=== PATIENT | male | born 1965 | race Caucasian/White ===

== ENCOUNTER 2023-11-04 12:39 | Inpatient (IN) ==
--- NOTE | 2023-11-04 12:56 | Emergency Department Note ---
Impression & Plan Shortness of breath, Bronchitis, Hypomagnesemia, Sinus tachycardia, Alcohol use disorder ED Provider Note NAME: DAVID YAN AGE: 57 SEX: M : 1965 ARRIVES VIA: Ambulance INFORMANT: Patient ED PROVIDER(S): Mahad Byrne MD CHIEF COMPLAINT: Shortness of breath, referred. PLAN: Disposition: Admit MEDICAL DECISION MAKING: The patient is a pleasant 57-year-old gentleman with a past medical history of asthma, hypertension, hyperlipidemia who presents to the emergency department via EMS, referred by urgent care for evaluation of worsening shortness of breath in the setting of patient's history of asthma reports he has been using his inhalers regularly for the past several days without improvement and he did experience of some worsening over the past 24 hours. He reports some intermittent productive sputum which is yellowish. He reports feeling chills today but denies objective fevers. He denies nausea, vomiting, diarrhea or urinary symptoms. He does admit to drinking alcohol daily and reports 5 drinks a day which he last had last night. Patient reports it has been sometime since he has gone more than a day or 2 without drinking but he feels he would not withdrawal and he does not feel like craving to drink per se. The patient reports a history of sleep apnea for which she uses CPAP at night though admits he often awakes with the mask having fallen off and so does not rarely use it. Patient denies history of smoking. On evaluation the patient is uncomfortable, mildly dyspneic but no acute distress, afebrile heart in the 110s and blood pressure 170s/90s and vital signs otherwise stable. O2 saturation is 95% on room air when awake but when sleeping would go down to 86% on room air. Lungs with a scant intermittent wheeze and lungs are otherwise clear. He appears clinically dry. EKG without overt acute ischemia. CXR negative for acute cardiopulmonary process per my personal preliminary review/interpretation. WBC and platelets within normal limits. H/H 13.9/39.6 without prior for comparison. Chemistry without metabolic acidosis. Magnesium is 1.3 with IV repletion initiated. Totally remains normal and AST and ALT are mildly elevated at 88 and 77, respectively in setting of history of patient's regular alcohol use and hyperlipidemia. High-sensitivity troponin is 4.2, within normal limits in setting of constant symptoms since yesterday evening where he reported worsening. Lipase is normal. TSH within normal limits. CTA of the chest was performed and was negative for PE or focal pneumonia. Evidence of bronchitis is described. Upon re-evaluation the patient did report feeling some improvement after initial IV fluid hydration. However he still remained tachycardic and somewhat dyspneic though less tremulous. We did discuss his low magnesium and symptoms and concern for possible underlying alcohol dependence. He does agree with plan for admission for further management. Blood cultures and lactate ordered and are pending. Patient was ordered for ceftriaxone and doxycycline given his feverishness and symptoms of bronchitis. AWSS protocol ordered. 1 mg of Ativan also administered for possible component of alcohol withdrawal. Case was discussed with Felicia Mann PAC with Johnathan Jacobo hospitalist, who will evaluate the patient for admission. Further management per admitting team. Triage Nursing notes reviewed and agree them. Prior/external medical records reviewed Vital Signs: reviewed Differential diagnosis: Reactive airway disease, pneumonia, pneumothorax, COPD, CHF, infections, cardiac ischemia, pulmonary embolism, musculoskeletal, gastrointestinal, as well as other pathologies. ER treatment provided: See below. Diagnostics interpreted by me: ECG: Sinus tachycardia, 105 bpm, no ectopy, nonspecific T wave abnormality, no overt ST elevation or depression, QTc 444, QRS 78. Cardiac Monitoring: An order for continuous cardiac monitoring was placed and demonstrated sinus tachycardia, 105 bpm, no ectopy. Laboratory studies: See below Imaging studies: See below Consultation(s): Case was discussed with Felicia Mann PAC with Johnathan Jacobo hospitaljaleel, who will evaluate the patient for admission. HPI: The patient is a pleasant 57-year-old gentleman with a past medical history of asthma, hypertension, hyperlipidemia who presents to the emergency department via EMS, referred by urgent care for evaluation of worsening shortness of breath in the setting of patient's history of asthma reports he has been using his inhalers regularly for the past several days without improvement and he did experience of some worsening over the past 24 hours. He reports some intermittent productive sputum which is yellowish. He reports feeling chills today but denies objective fevers. He denies nausea, vomiting, diarrhea or urinary symptoms. He does admit to drinking alcohol daily and reports 5 drinks a day which he last had last night. Patient reports it has been sometime since he has gone more than a day or 2 without drinking but he feels he would not withdrawal and he does not feel like craving to drink per se. The patient reports a history of sleep apnea for which she uses CPAP at night though admits he often awakes with the mask having fallen off and so does not rarely use it. Patient denies history of smoking. ROS: See above HPI for pertinent positives & negatives. A total of 10 systems reviewed and were otherwise negative. VITALS:See Below PHYSICAL EXAMINATION: GENERAL: Awake, alert, mildly dyspneic-appearing, in no distress HENT: Normocephalic, atraumatic. Oropharynx with dry mucous membranes and otherwise unremarkable. EYES: Normal conjunctiva. Sclera non-icteric. NECK: Supple. No nuchal rigidity. FROM. No JVD. RESPIRATORY: Scant intermittent wheeze and otherwise clear to auscultation. CARDIAC: Tachycardic rate, normal rhythm. Extremities warm and well perfused. Pulses equal. ABDOMEN: Soft, non-distended. No tenderness to palpation. No rebound or guarding. No masses. MUSCULOSKELETAL: Chest examination reveals no tenderness. The back is symmetrical on inspection without obvious abnormality. There is no CVA tenderness to palpation. No joint edema. LOWER EXTREMITIES: Calves are equal size bilaterally and non-tender. No edema. No discoloration. NEURO: Normal sensorium. No sensory or motor deficits noted. SKIN: No rash or jaundice noted. Mahad Byrne MD Past Med/Surg History Problem List Alcohol use disorder (Acute) Sinus tachycardia (Acute) Hypomagnesemia (Acute) Bronchitis (Acute) Shortness of breath (Acute) Surgical History (Updated 11/04/23 @ 16:59 by EDUARD Lorenzo) No pertinent past surgical history Family History (Updated 11/04/23 @ 16:59 by EDUARD Lorenzo) Other Dyslipidemia Hypertension Social History Smoking Status: Never smoker Second Hand Exposure: No; Do You Dip or Chew Tobacco: No; Tobacco Cessation Education Requested by Patient: No Hx Alcohol Use: Yes Alcohol type: hard liquor Hx Substance Use: No Preferred Language: Maldivian Communication Ability: Effective Store Sales Manager Required: No Beliefs That Will Affect Care: None Current Living Situation: Spouse Feels Safe at Home: Yes Safety Concerns: Feels Safe At This Time Assistive Devices: None Allergies Allergies Allergy/AdvReac Type Severity Reaction Status Date / Time carisoprodol [From Soma] Allergy Hives Verified 11/04/23 14:31 nabumetone [From Relafen] Allergy Hives Verified 11/04/23 14:31 Home Meds Home Medications Medication Instructions Recorded Confirmed Otc Prostate Supp 1 tab PO DAILY 11/04/23 11/04/23 albuterol sulfate 90 mcg/actuation 2 puff inhalation Q4 PRN Shortness 11/04/23 11/04/23 aerosol inhaler Of Breath Or Wheezing amlodipine 5 mg tablet 5 mg PO QAM 11/04/23 11/04/23 fluticasone furoate 200 1 inh inhalation QAM 11/04/23 11/04/23 mcg-vilanterol 25 mcg/dose inhalation powder (Breo Ellipta) lisinopril 40 mg tablet 40 mg PO QAM 11/04/23 11/04/23 montelukast 10 mg tablet 10 mg PO QAM 11/04/23 11/04/23 multivitamin 1 tab PO DAILY 11/04/23 11/04/23 simvastatin 20 mg tablet 20 mg PO QAM 11/04/23 11/04/23 tiotropium bromide 2.5 2 puff inhalation QAM 11/04/23 11/04/23 mcg/actuation mist for inhalation (Spiriva Respimat) trazodone 150 mg tablet 150 mg PO HS 11/04/23 11/04/23 valacyclovir 1 gram tablet 1,000 mg PO DAILY 11/04/23 11/04/23 Results & Data (ED) Vital Signs Vital Signs - 24 hr 11/04/23 12:50 11/04/23 13:01 11/04/23 13:22 Temperature 36.9 C Temperature Source Oral Pulse Rate 116 H 106 H Pulse Rate from SpO2 Sensor 110 H Respiratory Rate 20 16 Respiratory Depth Shallow Blood Pressure 172/93 H Blood Pressure Mean 119 Pulse Oximetry 95 95 96 Oxygen Delivery Method Room Air Room Air Sepsis Recent Fever Within 48 Hours No Sepsis New/Unexplained Change in Mental Status No Sepsis Action Taken by Nursing No Action Required 11/04/23 13:26 11/04/23 13:30 11/04/23 13:30 Temperature Temperature Source Pulse Rate 110 H 97 H Pulse Rate from SpO2 Sensor 91 H Respiratory Rate 6 L Respiratory Depth Blood Pressure 146/86 H Blood Pressure Mean 98 Pulse Oximetry 95 Oxygen Delivery Method Sepsis Recent Fever Within 48 Hours Sepsis New/Unexplained Change in Mental Status Sepsis Action Taken by Nursing 11/04/23 14:00 11/04/23 14:00 11/04/23 14:29 Temperature 37.1 C Temperature Source Oral Pulse Rate 110 H Pulse Rate from SpO2 Sensor 111 H Respiratory Rate 26 H Respiratory Depth Blood Pressure 156/105 H Blood Pressure Mean 131 Pulse Oximetry 96 Oxygen Delivery Method Sepsis Recent Fever Within 48 Hours Sepsis New/Unexplained Change in Mental Status Sepsis Action Taken by Nursing Laboratory Data Attestation: I reviewed the patient's lab results. 11/05/23 06:19 11/05/23 06:19 Lab Results 11/04/23 11/04/23 11/04/23 Range/Units 13:04 13:05 16:43 WBC 8.52 (4.8-10.8) K/ul RBC 3.83 L (4.70-6.10) M/uL Hgb 13.9 L (14.0-18.0) g/dl Hct 39.6 L (42.0-52.0) % MCV 103.4 H (80.0-100.0) fL MCH 36.3 H (25.0-34.0) pg MCHC 35.1 (32.0-36.0) g/dL RDW Std Deviation 46.4 H (36.4-46.3) fL RDW Coeff of Mark 12.1 (11.5-14.5) % Plt Count 239 (130-400) K/uL MPV 10.6 (9.4-12.4) fL Immature Gran % (Auto) 0.7 % Neut % (Auto) 75.7 % Lymph % (Auto) 12.2 % Terrell % (Auto) 10.2 % Eos % (Auto) 0.6 % Baso % (Auto) 0.6 % Neut # (Auto) 6.45 (1.40-6.50) K/uL Lymph # (Auto) 1.04 L (1.20-3.40) K/uL Terrell # (Auto) 0.87 H (0.11-0.59) K/uL Eos # (Auto) 0.05 (0.00-0.50) K/uL Baso # (Auto) 0.05 (0.00-0.20) K/uL Immature Gran # (Auto) 0.06 (0.01-0.20) K/uL Sodium 137 (136-145) mmol/L Potassium 3.6 (3.5-5.1) mmol/L Chloride 101 (98-107) mmol/L Carbon Dioxide 21 (21-32) mmol/L Anion Gap 15 H (3-11) BUN 12 (6-23) mg/dl Creatinine 0.73 (0.6-1.4) mg/dl Est Cr Clr Drug Dosing 130.3 ml/min Est GFR ( Amer) 119.3 ml/min Est GFR (Non-Af Amer) 103.0 ml/min BUN/Creatinine Ratio 16.4 (10-20) Glucose 89 (70-99(Fasting)) mg/dl Lactate 2.1 H* (0.4-2.0) mmol/L Calcium 8.9 (8.6-10.3) mg/dl Phosphorus 2.7 (2.5-4.9) mg/dl Magnesium 1.3 L (1.7-2.4) mg/dl Total Bilirubin 0.6 (0.2-1.0) mg/dl AST 88 H (13-39) U/L ALT 77 H (7-52) U/L Alkaline Phosphatase 66 (34-104) U/L Troponin I High Sens 4.2 (0-20) pg/ml Total Protein 7.1 (6.0-8.3) gm/dl Albumin 4.0 (3.4-5.0) gm/dl Globulin 3.1 (2.5-4.0) gm/dl Albumin/Globulin Ratio 1.3 (0.9-2) Lipase 65 (11-82) U/L Vitamin B12 (180-914) pg/ml Procalcitonin 0.08 (0-0.5) ng/ml TSH 1.522 (0.300-4.500) uIu/ml Ethyl Alcohol mg/dL < 10.0 (<10.0) mg/dl 11/04/23 Range/Units 16:44 WBC (4.8-10.8) K/ul RBC (4.70-6.10) M/uL Hgb (14.0-18.0) g/dl Hct (42.0-52.0) % MCV (80.0-100.0) fL MCH (25.0-34.0) pg MCHC (32.0-36.0) g/dL RDW Std Deviation (36.4-46.3) fL RDW Coeff of Mark (11.5-14.5) % Plt Count (130-400) K/uL MPV (9.4-12.4) fL Immature Gran % (Auto) % Neut % (Auto) % Lymph % (Auto) % Terrell % (Auto) % Eos % (Auto) % Baso % (Auto) % Neut # (Auto) (1.40-6.50) K/uL Lymph # (Auto) (1.20-3.40) K/uL Terrell # (Auto) (0.11-0.59) K/uL Eos # (Auto) (0.00-0.50) K/uL Baso # (Auto) (0.00-0.20) K/uL Immature Gran # (Auto) (0.01-0.20) K/uL Sodium (136-145) mmol/L Potassium (3.5-5.1) mmol/L Chloride (98-107) mmol/L Carbon Dioxide (21-32) mmol/L Anion Gap (3-11) BUN (6-23) mg/dl Creatinine (0.6-1.4) mg/dl Est Cr Clr Drug Dosing ml/min Est GFR ( Amer) ml/min Est GFR (Non-Af Amer) ml/min BUN/Creatinine Ratio (10-20) Glucose (70-99(Fasting)) mg/dl Lactate (0.4-2.0) mmol/L Calcium (8.6-10.3) mg/dl Phosphorus (2.5-4.9) mg/dl Magnesium (1.7-2.4) mg/dl Total Bilirubin (0.2-1.0) mg/dl AST (13-39) U/L ALT (7-52) U/L Alkaline Phosphatase (34-104) U/L Troponin I High Sens (0-20) pg/ml Total Protein (6.0-8.3) gm/dl Albumin (3.4-5.0) gm/dl Globulin (2.5-4.0) gm/dl Albumin/Globulin Ratio (0.9-2) Lipase (11-82) U/L Vitamin B12 579 (180-914) pg/ml Procalcitonin (0-0.5) ng/ml TSH (0.300-4.500) uIu/ml Ethyl Alcohol mg/dL (<10.0) mg/dl Administered Medications Amlodipine Besylate (Amlodipine Besylate 5 Mg Tab) 5 mg PO QAM KACIE Stop: 12/05/23 08:59 Last Admin: 11/05/23 08:09 Dose: 5 mg Documented By: TRACEY Enoxaparin Sodium (Enoxaparin Inj 40 Mg/0.4 Ml Syr) 40 mg SQ Q24H KACIE Stop: 12/04/23 16:59 Last Admin: 11/04/23 17:12 Dose: 40 mg Documented By: RENATO Fluticasone/Vilanterol (Fluticasone/Vilanterol 200/25mcg 14 Puffs/Inhaler) 1 puffs INH QAM KACIE Stop: 12/05/23 08:59 Last Admin: 11/05/23 08:12 Dose: 1 puffs Documented By: TRACEY Gabapentin (Gabapentin 600 Mg Tab) 600 mg PO Q8H KACIE Stop: 11/06/23 05:31 Last Admin: 11/05/23 13:50 Dose: 600 mg Documented By: EP Doxycycline Hyclate 100 mg/ (Dextrose) 100 mls @ 50 mls/hr IV Q12H KACIE Stop: 11/12/23 06:29 Last Infusion: 11/05/23 08:24 Dose: Infused Documented By: Admin: 11/05/23 05:43 Dose: 50 mls/hr Documented By: MARINO Ceftriaxone Sodium (Rocephin) 2,000 mg in 50 mls @ 100 mls/hr IV Q24H KACIE Stop: 11/12/23 14:59 Last Infusion: 11/05/23 15:30 Dose: Infused Documented By: Admin: 11/05/23 14:50 Dose: 100 mls/hr Documented By: TRACEY Lisinopril (Lisinopril 40 Mg Tab) 40 mg PO QAM KACIE Stop: 12/05/23 08:59 Last Admin: 11/05/23 08:10 Dose: 40 mg Documented By: TRACEY Loratadine ([facility]adine 10 Mg Tab) [facility] [place]: 12/05/23 08:59 Last Admin: 11/05/23 08:12 Dose: 10 mg Documented By: TRACEY Montelukast Sodium (Montelukast Sodium 10 Mg Tablet) 10 mg PO [facility] Stop: 12/05/23 08:59 Last Admin: 11/05/23 08:10 Dose: 10 mg Documented By: TRACEY Simvastatin (Simvastatin 20 Mg Tab) 20 mg PO [facility] Stop: 12/05/23 08:59 Last Admin: 11/05/23 08:10 Dose: 20 mg Documented By: TRACEY Trazodone HCl (Trazodone Hcl 50 Mg Tab) 150 mg PO [facility] Stop: 12/04/23 20:59 Last Admin: 11/04/23 21:37 Dose: 150 mg Documented By: RENATO Umeclidinium [place] (Umeclidinium [place] 62.5mcg/Blister 7 Puffs/Inhaler) 1 puffs INH [facility] Stop: 12/05/23 08:59 Last Admin: 11/05/23 08:12 Dose: 1 puffs Documented By: TRACEY Discontinued Medications Gabapentin (Gabapentin 600 Mg Tab) 1,200 mg PO NOW ONE Stop: 11/04/23 17:29 Last Admin: 11/04/23 18:40 Dose: 1,200 mg Documented By: RENATO Gabapentin (Gabapentin 600 Mg Tab) 600 mg PO Q6H [facility] Stop: 11/05/23 05:31 Last Admin: 11/05/23 05:43 Dose: 600 mg Documented By: Admin: 11/04/23 23:22 Dose: 600 mg Documented By: MARINO Guaifenesin (Guaifenesin 600 Mg Tabcr) 1,200 mg PO NOW STA Stop: 11/04/23 15:52 Last Admin: 11/04/23 17:11 Dose: 1,200 mg Documented By: RENATO Sodium Chloride (Nss) 1,000 mls @ 999 mls/hr IV .Q1H1M ONE Stop: 11/04/23 13:43 Last Infusion: 11/04/23 13:52 Dose: Infused Documented By: Admin: 11/04/23 13:21 Dose: 999 mls/hr Documented By: ISAEL Magnesium Sulfate/Dextrose (Magnesium Sulfate / D5w) 1 gm in 100 mls @ 100 mls/hr IV Q1H KACIE Stop: 11/04/23 16:02 Last Infusion: 11/04/23 18:36 Dose: Infused Documented By: Admin: 11/04/23 15:41 Dose: 100 mls/hr Documented By: Infusion: 11/04/23 15:26 Dose: Infused Documented By: Admin: 11/04/23 14:26 Dose: 100 mls/hr Documented By: SOURAV Acetaminophen (Ofirmev) 1,000 mg in 100 mls @ 400 mls/hr IV NOW STA Stop: 11/04/23 14:16 Last Infusion: 11/04/23 14:25 Dose: Infused Documented By: Admin: 11/04/23 14:09 Dose: 400 mls/hr Documented By: SOURAV Multivitamins 10 ml/ Thiamine HCl 100 mg/ Folic Acid 1 mg/Sodium Chloride 1,011.2 mls @ 500 mls/hr IV .Q2H2M ONE Stop: 11/04/23 16:06 Last Infusion: 11/04/23 18:36 Dose: Infused Documented By: Admin: 11/04/23 16:18 Dose: 500 mls/hr Documented By: RENATO Thiamine HCl 200 mg/ Sodium (Chloride) 52 mls @ 210 mls/hr IV NOW STA Stop: 11/04/23 14:19 Last Infusion: 11/04/23 18:37 Dose: Infused Documented By: Admin: 11/04/23 16:58 Dose: 210 mls/hr Documented By: RENATO Ceftriaxone Sodium (Rocephin) 2,000 mg in 50 mls @ 100 mls/hr IV NOW STA Stop: 11/04/23 16:23 Last Infusion: 11/04/23 18:37 Dose: Infused Documented By: Admin: 11/04/23 17:17 Dose: 100 mls/hr Documented By: RENATO Doxycycline Hyclate 100 mg/ (Dextrose) 100 mls @ 50 mls/hr IV NOW STA Stop: 11/04/23 17:53 Last Admin: 11/04/23 17:56 Dose: 50 mls/hr Documented By: RENATO Thiamine HCl 100 mg/ Syringe 10 mls @ 2 mls/min IV QAM KACIE Stop: 12/05/23 08:59 Last Admin: 11/05/23 08:12 Dose: 2 mls/min Documented By: EP Folic Acid 1 mg/ Syringe 10 mls @ 5 mls/min IV QAM KACIE Stop: 12/05/23 08:59 Last Admin: 11/05/23 08:12 Dose: 5 mls/min Documented By: EP Ioversol (Optiray 320 125ml) 119 ml IV ONCE ONE Stop: 11/04/23 14:51 Last Admin: 11/04/23 14:53 Dose: 119 ml Documented By: CHRISTOPHER Loratadine (Loratadine 10 Mg Tab) 10 mg PO NOW ONE Stop: 11/04/23 19:27 Last Admin: 11/04/23 19:38 Dose: 10 mg Documented By: RENATO Lorazepam (Lorazepam 1 Mg/1 Ml Syr Ed Inj Use) 1 mg IV ONE STA Stop: 11/04/23 15:46 Last Admin: 11/04/23 16:24 Dose: 1 mg Documented By: RENATO Imaging Data Radiologist's Impression: Chest X-Ray 11/04/23 12:43 XR chest 1V portable CLINICAL HISTORY: dizziness COMPARISON STUDY: No previous studies for comparison. FINDINGS: There is moderate elevation of the right hemidiaphragm. Lungs are clear. There is no pneumothorax or pleural effusion. Cardiac size is normal. Mediastinal contours are normal. There is no evidence for pulmonary edema. IMPRESSION: 1. No acute cardiopulmonary findings. 2. Elevation of the right hemidiaphragm. ACT 112: Negative or not required by law. Electronically signed by: Derek Gr M.D. 11/04/2023 1:47 PM Chest CTA 11/04/23 14:02 CHEST CTA for PULMONARY ARTERIES CT DOSE: 890.56 mGy.cm HISTORY: Shortness of breath, tachycardia, r/o PE TECHNIQUE: Multiaxial CT images of the chest were performed following the intravenous administration of contrast to evaluate the pulmonary arteries. 3D/Maximal intensity projection images were also obtained. Sagittal and coronal reformations were also reviewed. A dose lowering technique was utilized adhering to the principles of ALARA. COMPARISON STUDY: None. FINDINGS: Normal caliber thoracic aorta with no evidence for a dissection. Mild to moderate coronary artery calcifications are noted. The heart is borderline enlarged. No pleural or pericardial effusions. No filling defects within the pulmonary arteries to suggest a pulmonary embolus. Limited views the upper abdomen demonstrate hepatic steatosis and a normal spleen. The visualized adrenal glands are unremarkable. There is a 17 mm enhancing lesion within the left hepatic lobe on image 30. This is incompletely characterized on this study. Clustered hypodense lesions within the upper pole the left kidney are also incompletely characterized but favor septated cysts. These measure up to 3.7 cm. The thyroid gland enhances normally. Normal caliber esophagus. No mediastinal or hilar lymphadenopathy. No acute fractures within the chest. Old, healed sternal fracture. Old, healed right lower rib fractures. There is mild central bronchial wall thickening. Otherwise, the central airways are patent. No pneumothorax. No focal lung consolidations to suggest a pneumonia. No evidence for pulmonary edema. IMPRESSION: 1. No evidence for a pulmonary embolus. 2. Mild central bronchial wall thickening. This could be chronic or represent a mild reactive airways disease. 3. No focal lung consolidations to suggest pneumonia. 4. A 17 mm enhancing lesion within the left hepatic lobe. This is incompletely characterized on this study but statistically represents a benign lesion in the absence of a known malignancy. 5. Clustered hypodense lesions within the upper pole of the left kidney favor septated cysts. ACT 112: Negative or not required by law. Electronically signed by: Maximiliano Mitchell M.D. 11/04/2023 3:36 PM Discharge Plan Visit Data Chief Complaint: Cardiac Assessment ED Provider: Mahad Byrne Discharge Problem: Shortness of breath, Bronchitis, Hypomagnesemia, Sinus tachycardia, Alcohol use disorder Patient Disposition: Admitted As Inpatient Discharge Instructions Interventions: ED Discharge Assessment Last Done: 11/04/23 21:40
[2023-11-04] MEDS: SODIUM CHLORIDE 0.9% 1,000 ML IV ONE (13:21)
[2023-11-04 13:34] LABS: Basophils # (auto) 0.05 K/uL (0.00-0.20); Basophils % (auto) 0.6 %; Eosinophils # (auto) 0.05 K/uL (0.00-0.50); Eosinophils % (auto) 0.6 %; Hematocrit (blood only) 39.6 % (42.0-52.0); Hemoglobin 13.9 g/dl (14.0-18.0); Immature Granulocytes # (auto) 0.06 K/uL (0.01-0.20); Immature Granulocytes % (auto) 0.7 %; Lymphocytes # (auto) 1.04 K/uL (1.20-3.40); Lymphocytes % (auto) 12.2 %; Mean Corpuscular Hemoglobin 36.3 pg (25.0-34.0); Mean Corpuscular Hgb Conc 35.1 g/dL (32.0-36.0); Mean Corpuscular Volume 103.4 fL (80.0-100.0); Mean Platelet Volume 10.6 fL (9.4-12.4); Monocytes # (auto) 0.87 K/uL (0.11-0.59); Monocytes % (auto) 10.2 %; Neutrophils # (auto) 6.45 K/uL (1.40-6.50); Neutrophils % (auto) 75.7 %; Platelet Count 239 K/uL (130-400); RDW Coefficient of Variation 12.1 % (11.5-14.5); RDW Standard Deviation 46.4 fL (36.4-46.3); Red Blood Count 3.83 M/uL (4.70-6.10); White Blood Count 8.52 K/ul (4.8-10.8)
--- NOTE | 2023-11-04 13:49 | XRay Report ---
XR chest 1V portable CLINICAL HISTORY: dizziness COMPARISON STUDY: No previous studies for comparison. FINDINGS: There is moderate elevation of the right hemidiaphragm. Lungs are clear. There is no pneumo thorax or pleural effusion. Cardiac size is normal. Mediastinal contours are normal. There is no evid ence for pulmonary edema. IMPRESSION: 1. No acute cardiopulmonary findings. 2. Elevation of the right hemidiaphragm. ACT 112: Negative or not required by law. Electronically signed by: Derek Gr M.D. 11/04/2023 1:47 PM
[2023-11-04 13:50] LABS: Albumin Globulin Ratio 1.3 (0.9-2); BUN Creatinine Ratio 16.4 (10-20); Bilirubin,Total 0.6 mg/dl (0.2-1.0); Calcium 8.9 mg/dl (8.6-10.3); Creatinine Clr Calc Pharmacy 130.3 ml/min; Est GFR (African American) 119.3 ml/min; Globulin 3.1 gm/dl (2.5-4.0); Magnesium 1.3 mg/dl (1.7-2.4); Phosphorus 2.7 mg/dl (2.5-4.9); Potassium 3.6 mmol/L (3.5-5.1); Total Protein 7.1 gm/dl (6.0-8.3)
[2023-11-04 13:55] LABS: Troponin I High Sensitivity 4.2 pg/ml (0-20)
[2023-11-04 14:05] LABS: Thyroid Stimulating Hormone 1.522 uIu/ml (0.300-4.500)
[2023-11-04] MEDS: ACETAMINOPHEN 1,000 MG/100 ML VIAL IV STA (14:09)
[2023-11-04] MEDS: MAGNESIUM SULFATE / D5W 1 GM/100 ML BAG IV SCH (14:26)
[2023-11-04] MEDS: OPTIRAY 320 125ml IV ONE (14:53)
--- NOTE | 2023-11-04 15:38 | CT Scan Report ---
CHEST CTA for PULMONARY ARTERIES CT DOSE: 890.56 mGy.cm HISTORY: Shortness of breath, tachycardia, r/o PE TECHNIQUE: Multiaxial CT images of the chest were performed following the intravenous administration of contrast to evaluate the pulmonary arteries. 3D/Maximal intensity projection images were also obta ined. Sagittal and coronal reformations were also reviewed. A dose lowering technique was utilized a dhering to the principles of ALARA. COMPARISON STUDY: None. FINDINGS: Normal caliber thoracic aorta with no evidence for a dissection. Mild to moderate coronary artery calcifications are noted. The heart is borderline enlarged. No pleural or pericardial effusion s. No filling defects within the pulmonary arteries to suggest a pulmonary embolus. Limited views the upper abdomen demonstrate hepatic steatosis and a normal spleen. The visualized adrenal glands are u nremarkable. There is a 17 mm enhancing lesion within the left hepatic lobe on image 30. This is inco mpletely characterized on this study. Clustered hypodense lesions within the upper pole the left kidn ey are also incompletely characterized but favor septated cysts. These measure up to 3.7 cm. The thyr oid gland enhances normally. Normal caliber esophagus. No mediastinal or hilar lymphadenopathy. No ac [place] fractures within the chest. Old, healed sternal fracture. Old, healed right lower rib fractures. There is mild central bronchial wall thickening. Otherwise, the central airways are patent. No pneumo thorax. No focal lung consolidations to suggest a pneumonia. No evidence for pulmonary edema. IMPRESSION: 1. No evidence for a pulmonary embolus. 2. Mild central bronchial wall thickening. This could be chronic or represent a mild reactive airways disease. 3. No focal lung consolidations to suggest pneumonia. 4. A 17 mm enhancing lesion within the left hepatic lobe. This is incompletely characterized on this study but statistically represents a benign lesion in the absence of a known malignancy. 5. Clustered hypodense lesions within the upper pole of the left kidney favor septated cysts. ACT 112: Negative or not required by law. Electronically signed by: Maximiliano Mitchell M.D. 11/04/2023 3:36 PM
[2023-11-04] MEDS: MULTI-VITAMIN INFUSION 10 ML, THIAMINE HCL 100 MG, FOLIC ACID 1 MG in SODIUM CHLORIDE 0... IV ONE (16:18)
[2023-11-04] MEDS: LORazepam 1 MG/1 ML SYR ED Inj Use IV STA (16:24)
[2023-11-04] MEDS ORDERED: ACETAMINOPHEN 325 MG TAB PO PRN (16:47)
[2023-11-04] MEDS ORDERED: MAGNESIUM HYDROXIDE SUSP 30 ML UDC PO PRN (16:47)
[2023-11-04] MEDS ORDERED: ALUMINUM/MAGNESIUM SUSP 30 ML UDC PO PRN (16:47)
[2023-11-04] MEDS ORDERED: POLYETHYLENE (MIRALAX) 17 GM PACK PO PRN (16:47)
[2023-11-04] MEDS ORDERED: ONDANSETRON INJ 2 MG/ML 2 ML VIAL IV PRN (16:47)
[2023-11-04] MEDS: THIAMINE HCL 200 MG in SODIUM CHLORIDE 0.9% 50 ML IV STA (16:58)
--- NOTE | 2023-11-04 17:02 | History & Physical Report ---
Date of Service November 04, 2023 Assessment & Plan (1) Sinus tachycardia: (2) Alcohol use disorder: (3) Hypomagnesemia: (4) Shortness of breath: (5) Bronchitis: Plan Mr. 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 He reports this is never happened to him before and he proceeded to urgent care where they found that he was tachycardic in the 130s and sent him to the ED for further evaluation. He reports that he has been taking his inhalers over the past few days without improvement and notes that he has had a increase in sputum production with discoloration. He denies overt fever and chills. He does admit to daily alcohol use including 5 drinks of vodka per day that he drinks between 5 PM and 10:30 PM he states that he has missed a few days of drinking before but it has been more than a few years. He denies any seizure or withdrawal symptoms but does report that he "shakes" at times. Additional past medical history includes asthma, HTN, HLD, alcohol use. In the ED no leukocytosis, hypomagnesemia 1.3, mild transaminitis, procalcitonin negative, otherwise electrolytes unremarkable. Chest x-ray negative for acute cardiopulmonary disease chest CT a negative for PE but suggestive of bronchial wall thickening with a mild 17 mm liver lesion noted. EKG without ischemia. CXR negative for acute cardiopulmonary process. Chest CTA no evidence for a pulmonary embolus. Mild central bronchial wall th ickening. This could be chronic or represent a mild reactive airways disease. No focal lung consolidations to suggest pneumonia. A 17 mm enhancing lesion within the left hepatic lobe. This is incompletely characterized on this study but statistically represents a benign lesion in the absence of a known malignancy. Clustered hypodense lesions within the upper pole of the left kidney favor septated cysts. Patient will be admitted for further evaluation and management for possible sepsis of pulmonary source given elevated lactate, tachycardia, intermittent fevers. Will continue treatment for possible community-acquired pneumonia with ceftriaxone plus doxycycline, trend lactate down, flutter valve and incentive spirometry with nebulizers as needed, sputum culture. Trend LFTs and placed on AWSS scale including gabapentin and as needed Ativan for withdrawal symptoms, treat hypertension and HLD with outpatient medications. ECG without ischemic changes; will obtain echocardiogram given history of hypertension and persistent tachycardia however suspect that his tachycardia is related to viral infection and possible alcohol withdrawal. Possible sepsis: Shortness of breath: Tachycardia: Acute No leukocytosis; however, has elevated lactate 2.1, tachycardia on admission and intermittent fevers Procalcitonin negative Blood cultures pending Biofire pending ECG negative for ischemic changes ECHO ordered given HTN and tachycardia CXR negative for acute cardiopulmonary disease Chest CTA negative for PE; suggestive of bronchial wall thickening Started on ceftriaxone plus Doxy in ED; will continue given asthma history; adjust based on culture results incentive spirometry + Flutter valve for pulmonary toileting Mucinex PRN Sputum culture ordered Transaminitis: Alcohol use disorder: Acute AST 80, ALT 77 17 mm enhancing lesion within the left hepatic lobe incidentally found. Clustered hypodense lesions within the left kidney suggestive of cysts Liver US ordered Banana bag given 1 mg Ativan given in ED for tremulous presentation AWSS scale ordered Thiamine plus folate IV Encouraged cessation of drinking Hypomagnesemia: Acute Serum Mg+ 1.3; 2 g administered in ED; will trend in a.m. Asthma: Chronic Takes Spiriva, Breo Ellipta and PRN Albuterol;continue Takes Singulair;continue duo nebs ordered PRN Does not sound wheezy on examination HTN: Chronic Takes amlodipine plus lisinopril; continue HLD: Chronic Takes Simvastatin; continue Disposition: PCP: Dr. Clay CODE STATUS: Full code VTE prophylaxis: Lovenox SQ I spent a total of 87 minutes coordinating, documenting, and providing care for this patient excluding time spent in the performance of separately billed services. All of the aforementioned completed while collaborating with the assigned attending physician for a full treatment plan. Please see their addendum for further details. History of Present Illness Chief Complaint: tachycardia/bronchitis Primary Care Provider: Richard Clay DO Mr. 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 He reports this is never happened to him before and he proceeded to urgent care where they found that he was tachycardic in the 130s and sent him to the ED for further evaluation. He reports that he has been taking his inhalers over the past few days without improvement and notes that he has had a increase in sputum production with discoloration. He denies overt fever and chills. He does admit to daily alcohol use including 5 drinks of vodka per day that he drinks between 5 PM and 10:30 PM he states that he has missed a few days of drinking before but it has been more than a few years. He denies any seizure or withdrawal symptoms but does report that he "shakes" at times. Additional past medical history includes asthma, HTN, HLD, alcohol use. In the ED no leukocytosis, hypomagnesemia 1.3, mild transaminitis, procalcitonin negative, otherwise electrolytes unremarkable. Chest x-ray negative for acute cardiopulmonary disease chest CT a negative for PE but suggestive of bronchial wall thickening with a mild 17 mm liver lesion noted. EKG without ischemia. CXR negative for acute cardiopulmonary process. Chest CTA no evidence for a pulmonary embolus. Mild central bronchial wall thickening. This could be chronic or represent a mild reactive airways disease. No focal lung consolidations to suggest pneumonia. A 17 mm enhancing lesion within the left hepatic lobe. This is incompletely characterized on this study but statistically represents a benign lesion in the absence of a known malignancy. Clustered hypodense lesions within the upper pole of the left kidney favor septated cysts. Patient will be admitted for further evaluation and management and given asthma history and elevated lactate with tachycardia will continue treatment for community-acquired pneumonia with ceftriaxone plus doxycycline, trend lactate down, flutter valve and incentive spirometry with nebulizers as needed, sputum culture. Trend LFTs and placed on a WSS scale including gabapentin and as needed Ativan for withdrawal symptoms, treat hypertension and HLD with outpatient medications. ECG without ischemic changes; will obtain echocardiogram given history of hypertension and persistent tachycardia however suspect that his tachycardia is related to viral infection and possible alcohol withdrawal. Allergies Allergy/AdvReac Type Severity Reaction Status Date / Time carisoprodol [From Soma] Allergy Hives Verified 11/04/23 14:31 nabumetone [From Relafen] Allergy Hives Verified 11/04/23 14:31 Home Medications Medication Instructions Recorded Confirmed Type Otc Prostate Supp 1 tab PO DAILY 11/04/23 11/04/23 History albuterol sulfate 90 mcg/actuation 2 puff inhalation Q4 PRN Shortness 11/04/23 11/04/23 History aerosol inhaler Of Breath Or Wheezing amlodipine 5 mg tablet 5 mg PO QAM 11/04/23 11/04/23 History fluticasone furoate 200 1 inh inhalation QAM 11/04/23 11/04/23 History mcg-vilanterol 25 mcg/dose inhalation powder (Breo Ellipta) lisinopril 40 mg tablet 40 mg PO QAM 11/04/23 11/04/23 History montelukast 10 mg tablet 10 mg PO QAM 11/04/23 11/04/23 History multivitamin 1 tab PO DAILY 11/04/23 11/04/23 History simvastatin 20 mg tablet 20 mg PO QAM 11/04/23 11/04/23 History tiotropium bromide 2.5 2 puff inhalation QAM 11/04/23 11/04/23 History mcg/actuation mist for inhalation (Spiriva Respimat) trazodone 150 mg tablet 150 mg PO HS 11/04/23 11/04/23 History valacyclovir 1 gram tablet 1,000 mg PO DAILY 11/04/23 11/04/23 History Past Med/Surg History Problem List Alcohol use disorder (Acute) Sinus tachycardia (Acute) Hypomagnesemia (Acute) Bronchitis (Acute) Shortness of breath (Acute) Surgical History (Updated 11/04/23 @ 16:59 by EDUARD Lorenzo) No pertinent past surgical history Family History (Updated 11/04/23 @ 16:59 by EDUARD Lorenzo) Other Dyslipidemia Hypertension Social History Smoking Status: Never smoker Feels Safe at Home: Yes Review of Systems Review of Systems: Neuro: (-) Falls, trauma, slurred speech HEENT: (-) MAYA, dizziness, dysphagia, visual or auditory changes CV: (-) CP, palpitations, swelling Resp: (-) SOB GI: (-) appetite changes, N/V/D, bowel changes : (-) urinary changes Skin: (-) rashes Psych: (-) anxiety, depression Physical Exam Physical Exam: Neuro: AAOx4, PERRLA, no aphagia, memory changes, CNII-XII grossly intact HEENT: head normocephalic, moist mucus membranes CV: S1/S2, (-) M/G/R, (-) edema, cap refill < 3 seconds Resp: Lungs CTA in all dominguez. On RA GI: Abdomen S/NT/ND, Ax4 bowel sounds, (-) CVA tenderness Musculoskeletal: 5/5 B/L UE strength, 5/5 B/L LE strength. No gait disturbance Skin: (-) rashes , (-) erythema. Psych: euthymic mood Results & Data Results & Data Vital Signs (Past 12 Hours) Vital Signs Temp Pulse Resp BP Pulse Ox O2 Del Method 11/04/23 15:32 152/89 H 11/04/23 15:32 111 H 24 94 11/04/23 15:31 114 H 18 94 11/04/23 15:00 106 H 15 96 11/04/23 15:00 37.1 C 157/95 H 11/04/23 14:30 107 H 12 92 11/04/23 14:30 149/91 H 11/04/23 14:29 37.1 C 11/04/23 14:28 113 H 19 92 11/04/23 14:28 136/88 11/04/23 14:00 110 H 26 H 96 11/04/23 14:00 156/105 H 11/04/23 13:30 146/86 H 11/04/23 13:30 97 H 6 L 95 11/04/23 13:26 110 H 11/04/23 13:22 106 H 16 96 11/04/23 13:01 95 Room Air 11/04/23 12:50 36.9 C 116 H 20 172/93 H 95 Room Air Laboratory Results Short CBC 11/04/23 Range/Units 13:04 WBC 8.52 (4.8-10.8) K/ul Hgb 13.9 L (14.0-18.0) g/dl Hct 39.6 L (42.0-52.0) % Plt Count 239 (130-400) K/uL BMP 11/04/23 13:04 Sodium 137 Potassium 3.6 Chloride 101 Carbon Dioxide 21 BUN 12 Creatinine 0.73 Glucose 89 Calcium 8.9 Liver Function 11/04/23 Range/Units 13:04 Total Bilirubin 0.6 (0.2-1.0) mg/dl AST 88 H (13-39) U/L ALT 77 H (7-52) U/L Alkaline Phosphatase 66 (34-104) U/L Albumin 4.0 (3.4-5.0) gm/dl Diagnostic Findings Chest X-Ray 11/04/23 12:43 XR chest 1V portable CLINICAL HISTORY: dizziness COMPARISON STUDY: No previous studies for comparison. FINDINGS: There is moderate elevation of the right hemidiaphragm. Lungs are clear. There is no pneumothorax or pleural effusion. Cardiac size is normal. Mediastinal contours are normal. There is no evidence for pulmonary edema. IMPRESSION: 1. No acute cardiopulmonary findings. 2. Elevation of the right hemidiaphragm. ACT 112: Negative or not required by law. Electronically signed by: Derek Gr M.D. 11/04/2023 1:47 PM Chest CTA 11/04/23 14:02 CHEST CTA for PULMONARY ARTERIES CT DOSE: 890.56 mGy.cm HISTORY: Shortness of breath, tachycardia, r/o PE TECHNIQUE: Multiaxial CT images of the chest were performed following the intravenous administration of contrast to evaluate the pulmonary arteries. 3D/Maximal intensity projection images were also obtained. Sagittal and coronal reformations were also reviewed. A dose lowering technique was utilized adhering to the principles of ALARA. COMPARISON STUDY: None. FINDINGS: Normal caliber thoracic aorta with no evidence for a dissection. Mild to moderate coronary artery calcifications are noted. The heart is borderline enlarged. No pleural or pericardial effusions. No filling defects within the pulmonary arteries to suggest a pulmonary embolus. Limited views the upper abdomen demonstrate hepatic steatosis and a normal spleen. The visualized adrenal glands are unremarkable. There is a 17 mm enhancing lesion within the left hepatic lobe on image 30. This is incompletely characterized on this study. Clustered hypodense lesions within the upper pole the left kidney are also incompletely characterized but favor septated cysts. These measure up to 3.7 cm. The thyroid gland enhances normally. Normal caliber esophagus. No mediastinal or hilar lymphadenopathy. No acute fractures within the chest. Old, healed sternal fracture. Old, healed right lower rib fractures. There is mild central bronchial wall thickening. Otherwise, the central airways are patent. No pneumothorax. No focal lung consolidations to suggest a pneumonia. No evidence for pulmonary edema. IMPRESSION: 1. No evidence for a pulmonary embolus. 2. Mild central bronchial wall thickening. This could be chronic or represent a mild reactive airways disease. 3. No focal lung consolidations to suggest pneumonia. 4. A 17 mm enhancing lesion within the left hepatic lobe. This is incompletely characterized on this study but statistically represents a benign lesion in the absence of a known malignancy. 5. Clustered hypodense lesions within the upper pole of the left kidney favor septated cysts. ACT 112: Negative or not required by law. Electronically signed by: Maximiliano Mitchell M.D. 11/04/2023 3:36 PM Code Status & VTE Plan Code Status Full Code in the event of cardiac or respiratory distress VTE Prophylaxis Plan VTE Prophylaxis will be ordered: Yes Supervising Physician Co-Signing Physician Notes I have seen and discussed the case with the collaborating advanced practitioner. I agree with the above H&P. I have reviewed and confirmed the patients medical history, the findings on physical examination, and the patients diagnosis and treatment plan with ARIANA and agree with the information documented. In short,, Mr. Oakes is a 57 year old gentleman with history of asthma, HTN, HLD, alcohol use who is admitted for subjective SOB. Reports feeling down for last few days, then became dizzy at work prompting presentations. Drinks 7-10 vodka drinks a night. CTA without pulm embolism, however, concern for bronchitis. Denies fevers chills. Denies wheezing. Endorses dry cough GENERAL APPEARANCE: AxOx4, generally well-appearing male no acute distress. HEENT: NC, AT. MMM. EOMI, clear conjunctiva, oropharynx clear. NECK: Supple without lymphadenopathy. No stiffness or restricted ROM. HEART: tachycardic, regular LUNGS: CTAB, moving air well. No crackles or wheezes are heard. +dry cough ABDOMEN: Soft, nontender, nondistended with good bowel sounds heard. BACK: No CVAT, no obvious deformity. EXTREMITIES: Without cyanosis, clubbing or edema. NEUROLOGICAL: Grossly nonfocal. Alert and oriented, moving all 4 extremities. CN not formally tested but appear grossly intact. Skin: Warm and dry without any rash. #Acute bronchitis #Asthma No wheezing on exam, dry cough+, doesn't sound tight on room air Nebs prn Continue home inhalers Tx with ctx/doxy Lactate 2.1-s/p fluids, repeat lactate #Etoh withdrawal notable ETOH intake--HTN and tachycardia likely iso illness, but also near 24 hours since last alcohol intake Gabapentin, ativan prn Monitor on tele AWSS rest of plan as above I spent a total of 35 minutes coordinating, documenting, and providing care for this patient excluding time spent in the performance of separately billed services. All of the aforementioned completed outside of collaborating with the assigned advanced practitioner for a full treatment plan. I have reviewed the advanced practitioner's documentation, and I agree with, and take responsibility for the plan of care
[2023-11-04] MEDS: guaiFENesin 600 MG TABCR PO STA (17:11)
[2023-11-04] MEDS: ENOXAPARIN INJ 40 MG/0.4 ML SYR SQ SCH (17:12)
[2023-11-04] MEDS: cefTRIAXone SODIUM 2,000 MG/50 ML BAG IV STA (17:17)
[2023-11-04] MEDS ORDERED: LORazepam 1 MG in SYRINGE 0.5 ML IV PRN (17:23)
[2023-11-04] MEDS ORDERED: GABAPENTIN 1200MG ALCOHOL WITHDRAWAL LOAD PO STA (17:23)
[2023-11-04] MEDS ORDERED: ALBUTEROL HFA 8 GM INHALER INH PRN (17:33)
[2023-11-04] MEDS: DOXYCYCLINE HYCLATE 100 MG in DEXTROSE 5% MINI-B 100 ML IV STA (17:56)
[2023-11-04] MEDS ORDERED: ALBUT/IPRATROP 3MG/0.5MG NEB 3 ML VIAL NEB PRN (18:18)
[2023-11-04] MEDS: GABAPENTIN 600 MG TAB PO ONE (18:40)
[2023-11-04 18:51] LABS: Adenovirus PCR Not Detected (NotDetected); Bordetella parapertussis PCR Not Detected (NotDetected); Bordetella pertussis PCR Not Detected (NotDetected); Chlamydia pneumoniae PCR Not Detected (NotDetected); Coronavirus 229E PCR Not Detected (NotDetected); Coronavirus CoV-2 (COVID19)PCR Not Detected (NotDetected); Coronavirus HKU1 PCR Not Detected (NotDetected); Coronavirus NL63 PCR Not Detected (NotDetected); Coronavirus OC43PCR Not Detected (NotDetected); Human Metapneumovirus PCR Not Detected (NotDetected); Influenza A PCR Not Detected (NotDetected); Influenza B PCR Not Detected (NotDetected); Mycoplasma pneumoniae PCR Not Detected (NotDetected); Parainfluenza Virus 1 PCR Not Detected (NotDetected); Parainfluenza Virus 2 PCR Not Detected (NotDetected); Parainfluenza Virus 3 PCR Not Detected (NotDetected); Parainfluenza Virus 4 PCR Not Detected (NotDetected); Respiratory Syncytial VirusPCR Not Detected (NotDetected); Rhinovirus/Enterovirus PCR Not Detected (NotDetected)
[2023-11-04] MEDS: LORATADINE 10 MG TAB PO ONE (19:38)
[2023-11-04] MEDS: traZODone HCL 50 MG TAB PO SCH (21:37)
[2023-11-04] MEDS: GABAPENTIN 600 MG TAB PO SCH (23:22)
[2023-11-05] MEDS: DOXYCYCLINE HYCLATE 100 MG in DEXTROSE 5% MINI-B 100 ML IV SCH (05:43)
[2023-11-05 07:19] LABS: Basophils # (auto) 0.02 K/uL (0.00-0.20); Basophils % (auto) 0.3 %; Hematocrit (blood only) 37.9 % (42.0-52.0); Hemoglobin 13.3 g/dl (14.0-18.0); Immature Granulocytes # (auto) 0.09 K/uL (0.01-0.20); Immature Granulocytes % (auto) 1.2 %; Lymphocytes % (auto) 9.4 %; Mean Corpuscular Hemoglobin 36.1 pg (25.0-34.0); Mean Corpuscular Hgb Conc 35.1 g/dL (32.0-36.0); Mean Platelet Volume 11.1 fL (9.4-12.4); Monocytes # (auto) 0.55 K/uL (0.11-0.59); Monocytes % (auto) 7.4 %; Neutrophils # (auto) 6.11 K/uL (1.40-6.50); Neutrophils % (auto) 81.7 %; Platelet Count 225 K/uL (130-400); RDW Coefficient of Variation 11.7 % (11.5-14.5); RDW Standard Deviation 44.5 fL (36.4-46.3); Red Blood Count 3.68 M/uL (4.70-6.10); White Blood Count 7.47 K/ul (4.8-10.8)
[2023-11-05 07:44] LABS: Albumin Globulin Ratio 1.3 (0.9-2); Albumin Level 3.8 gm/dl (3.4-5.0); BUN Creatinine Ratio 18.5 (10-20); Bilirubin,Total 0.5 mg/dl (0.2-1.0); Calcium 8.7 mg/dl (8.6-10.3); Chol HDL Ratio 1.7 (0-5); Creatinine Clr Calc Pharmacy 143.9 ml/min; Est GFR (African American) 125.2 ml/min; Globulin 2.9 gm/dl (2.5-4.0); Magnesium 1.7 mg/dl (1.7-2.4); Phosphorus 3.5 mg/dl (2.5-4.9); Potassium 3.7 mmol/L (3.5-5.1); Total Protein 6.7 gm/dl (6.0-8.3)
--- NOTE | 2023-11-05 08:00 | Ultrasound Report ---
ABDOMINAL ULTRASOUND, RIGHT UPPER QUADRANT HISTORY: transaminitis/17mm liver lesion. COMPARISON: Chest CTA 11/04/2023. FINDINGS: Pancreas: The pancreatic head and tail are obscured by overlying bowel gas. The remaining portions of the pancreas are within normal limits. Liver: The liver is echogenic consistent with fatty change. 16 cm in length. There is an irregular hy poechoic lesion again noted within the left hepatic lobe measuring 22 x 18 x 19 mm. This is indetermi mega. Gallbladder: No gallbladder wall thickening. No gallstones. CBD: 3 mm. Right kidney: No hydronephrosis. Focal cortical scarring noted within the lower pole. IMPRESSION: 1. Hepatic steatosis. 2. An irregular hypoechoic lesion within the left hepatic lobe measuring 22 x 18 x 19 mm. This is ind eterminate. Dedicated contrast-enhanced liver MRI can be performed for better characterization. 3. Normal gallbladder. No gallstones. ACT 112: Negative or not required by law. Electronically signed by: Maximiliano Mitchell M.D. 11/05/2023 7:59 AM
[2023-11-05] MEDS: amLODIPine BESYLATE 5 MG TAB PO SCH (08:09)
[2023-11-05] MEDS: SIMVASTATIN 20 MG TAB PO SCH (08:10)
[2023-11-05] MEDS: lisinopril 40 MG TAB PO SCH (08:10)
[2023-11-05] MEDS: MONTELUKAST SODIUM 10 MG TABLET PO SCH (08:10)
[2023-11-05] MEDS: FLUTICASONE/VILANTEROL 200/25MCG 14 PUFFS/INHALER INH SCH (08:12)
[2023-11-05] MEDS: FOLIC ACID 1 MG in SYRINGE 9.8 ML IV SCH (08:12)
[2023-11-05] MEDS: LORATADINE 10 MG TAB PO SCH (08:12)
[2023-11-05] MEDS: THIAMINE HCL 100 MG in SYRINGE 9 ML IV SCH (08:12)
[2023-11-05] MEDS: UMECLIDINIUM BROMIDE 62.5MCG/BLISTER 7 PUFFS/INHALER INH SCH (08:12)
--- NOTE | 2023-11-05 08:39 | Electrocardiogram Report ---
Test Reason : Blood Pressure : / mmHG Vent. Rate : 105 BPM Atrial Rate : 105 BPM P-R Int : 140 ms QRS Dur : 078 ms QT Int : 336 ms P-R-T Axes : 038 038 -15 degrees QTc Int : 444 ms Sinus tachycardia T wave abnormality, consider inferior ischemia T wave abnormality, consider anterior ischemia Abnormal ECG No previous ECGs available Confirmed by Flako Stark ([id number]) on 11/05/2023 8:39:26 AM Referred By: REFERRED SELF Confirmed By:Flako Stark
[2023-11-05] MEDS: GABAPENTIN 600 MG TAB PO SCH (13:50)
[2023-11-05] MEDS: cefTRIAXone SODIUM 2,000 MG/50 ML BAG IV SCH (14:50)
--- NOTE | 2023-11-05 16:00 | Hospitalist Progress Note ---
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 He proceeded to urgent care where they found that he was tachycardic in the 130s and sent him to the ED for further evaluation. He reports that he has been taking his inhalers over the past few days without improvement and notes that he has had a increase in sputum production with discoloration. He denies overt fever and chills. He does admit to daily alcohol use including 5 drinks of vodka per day that he drinks between 5 PM and 10:30 PM he states that he has missed a few days of drinking before without seizures or withdrawal. Additional past medical history includes asthma, HTN, HLD, alcohol use. Possible pneumonia versus bronchitis Severe sepsis POA: In the setting of possible upper respiratory infection. Heart rate/lactate/respiratory rate elevated at presentation. 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 Admitting CXR and CTA chest reviewed. Echo reviewed. Respiratory pathogen panel negative. Continue with ceftriaxone 11/04 and doxycycline 11/04. Continue home inhalers. Continue as needed inhalers. Add probiotic. Patient reports improving cough and reports feeling better/improvement in shortness of breath. Liver lesion: Irregular hypoechoic lesion noted in the US liver measuring 22 x 18 x 19 mm. Patient made aware. Patient advised to follow-up with contrast- enhanced liver MRI as an outpatient. Patient voiced understanding. Transaminitis and alcohol use disorder: LFT trending down, continue LASHELL S protocol, continue thiamine and folic acid. Patient not interested in quitting drinking, but plans to cut down on drinking. Other chronic medical conditions: Continue with/resume home meds as and when able Asthma: Chronic, appears stable, no wheezing, continue home medications. HTN: Chronic, continue home amlodipine and lisinopril. Hyperlipidemia: Chronic, continue home simvastatin CODE STATUS: Full code DVT prophylaxis: Lovenox Dispo: Likely tomorrow pending improvement in clinical condition. Admission and Anticipated Discharge Date Admission Date: November 04, 2023 Subjective patient was seen and examined at bedside. Patient was lying in bed, on room air, NAD, reports no new acute event overnight. Patient reports feeling overall better, reports cough with brown sputum, denies withdrawal symptoms/seizures in the past. Patient reports eating okay and moving bowels okay. Physical Exam Physical Exam: GENERAL: Alert and oriented x3. NAD, on RA. HEENT: No pallor, no icterus. Pupils equal, round and reactive to light. Oral mucosa moist. NECK: No JVD, no neck masses. HEART: S1 and S2 heard. Regular rate and rhythm. No murmur, no gallop. RESPIRATORY SYSTEM: Normal AP diameter. No accessory muscle use. No wheezing, no crackles. ABDOMEN: Soft, bowel sounds present, nontender, no distention. CENTRAL NERVOUS SYSTEM: No facial droop. Speech is clear. Obeys simple commands. Moves extremities. EXTREMITIES: No edema, no erythema seen. Results & Data Results & Data Vital Signs (Past 12 Hours) Vital Signs Temp Pulse Pulse Resp BP BP Pulse Ox 11/05/23 15:34 100 H 11/05/23 14:57 36.9 C 92 H 18 122/77 92 11/05/23 11:21 36.6 C 90 16 144/81 H 95 11/05/23 09:52 94 H 11/05/23 07:06 36.8 C 96 H 16 148/81 H 96 O2 Del Method 11/05/23 15:34 11/05/23 14:57 Room Air 11/05/23 11:21 Room Air 11/05/23 09:52 11/05/23 07:06 Room Air
--- OUTSIDE RECORDS SUMMARY | 2023-11-05 18:31 | External Medical Summary ---
Author Name Unknown Address Unknown Organization [id number]:[facility] [address] [place] [address] Laboratory Report Ordering Provider Test Date Status MARIO SULLIVAN 06/23/2023 08:30:46 Final Observation Date Value Abnormality Reference (Units ) Status BUN 06/23/2023 08:30:46 14 6-20 (mg/dL) Final Creatinine 06/23/2023 08:30:46 0.8 0.6-1.2 (mg/dL) Final Glomerular filtration rate/1.73 sq M.predicted [Volume Rate/Area] in Serum, Plasma or Blood by Creatinine-based formula (CKD-EPI) 06/23/2023 08:30:46 >90 >=60 (mL/min) Final eGFR is calculated based on the CKD-EPI 2020 equation SODIUM 06/23/2023 08:30:46 137 135-146 (m mol/L) Final Potassium 06/23/2023 08:30:46 3.9 3.5-5.1 (m mol/L) Final Cl 06/23/2023 08:30:46 98 98-107 (mm ol/L) Final CO2 06/23/2023 08:30:46 27 22-32 (mmo l/L) Final Anion gap 06/23/2023 08:30:46 12 7-15 (mmol /L) Final Glucose 06/23/2023 08:30:46 90 70-120 (mg /dL) Final Albumin 06/23/2023 08:30:46 4.2 3.8-5.0 (g /dL) Final AST (Aspartate aminotransferase) 06/23/2023 08:30:46 39 10-50 (U/L) Final Alk Phos 06/23/2023 08:30:46 108 35-130 (U/ L) Final Bilirubin, Total 06/23/2023 08:30:46 1.2 <=1 .2 (mg/dL) Final Calcium 06/23/2023 08:30:46 9.7 8.4-10.2 ( mg/dL) Final Protein 06/23/2023 08:30:46 6.9 6.0-8.3 (g /dL) Final ALT (Alanine aminotransferase) 06/23/2023 08:30:46 42 10-50 (U/L) Final Performing Location [facility] [phone] [place] [address]
--- OUTSIDE RECORDS SUMMARY | 2023-11-05 18:31 | External Medical Summary ---
Author Name Unknown Address Unknown Organization [id number]:[facility] [place] [facility] [address] [facility] [address] [facility] [address] Laboratory Report Ordering Provider Test Date Status YG ROSENBAUM 06/23/2023 08:30:46 Final Observation Date Value Abnormality Reference (Units ) Status WBC, Total 06/23/2023 08:30:46 8.36 4.00-10.80 (K/uL) Final RBC 06/23/2023 08:30:46 3.88 4.50-5.25 (M/uL) Final Hemoglobin 06/23/2023 08:30:46 14.8 14.0-16.8 (g/dL) Final HCT 06/23/2023 08:30:46 43.9 40.0-48.4 (%) Final MCV 06/23/2023 08:30:46 113.1 82.0-99.5 (fL) Final MCH 06/23/2023 08:30:46 38.1 27.0-34.0 (pg) Final MCHC 06/23/2023 08:30:46 33.7 32.0-36.0 (g/dL) Final RDW 06/23/2023 08:30:46 11.3 11.5-15.5 (%) Final Platelets 06/23/2023 08:30:46 205 140-400 (K/uL) Final MPV 06/23/2023 08:30:46 11.1 6.6-11.1 (fL) Final Nucleated erythrocytes/100 leukocytes [Ratio] in Blood by Automated count 06/23/2023 08:30:46 0 <=0 (/100 WBCs) Final Performing Location [facility] [place] - [address] [place] [address]
--- OUTSIDE RECORDS SUMMARY | 2023-11-05 18:31 | External Medical Summary ---
Author Name Unknown Address Unknown Organization [id number]:[facility] [place] - [address] [place] [address] Laboratory Report Ordering Provider Test Date Status 06/23/2023 08:30:46 Final Observation Date Value Abnormality Reference (Units ) Status Vitamin B12 06/23/2023 08:30:46 [phone] (pg/mL) Final Performing Location [facility] - [address] [place] [address]
--- OUTSIDE RECORDS SUMMARY | 2023-11-05 18:31 | External Medical Summary | Summary of Care ---
Author Name Unknown Organization [facility] Address [address] [place] [address] Phone [phone] Care Team Providers Care Spindraw Operator Name Role Phone DannaRichard Claudy OAKES Primary Care Provider [phone] Reason for Visit * Reason Comments Outpatient Testing Encounter Details Date Type Department Care Team (Late st Contact Info) Description 06/23/2023 8:30 AM EST Laboratory Laboratory Sc[address]ery [facility] [address] [place] [address] [facility] [address] [place] [address] Encounter for long-term (current) use of medications; Hypercholesteremia; Hypertension, unspecified type; Tremors of nervous system; Preventative health care Allergies Active Allergy Reactions Criticality Noted Date Comments Nabumetone 03/28/2018 Carisoprodol 03/28/2018 documented as of this encounter (statuses as of 06/23/2023) Medications Medication Sig Dispensed Refills Start Date End Date Status Multiple Vitamin (MULTI-DAY) Tablet Take 1 Tab by mouth daily. 0 Active Albuterol Sulfate HFA 108 (90 Base) MCG/ACT Inhalation Aerosol Solution INHALE 2 PUFFS BY MOUTH EVERY 4 HOURS NEEDED FOR WHEEZING 54 g 2 03/17/2021 Active Osteo Bi-Flex Adv Joint Shield Oral Tablet Take by mouth 1 Tablet in the morning. 0 Active diphenhydrAMINE HCl 25 MG Oral Tablet Take 1 Tablet by mouth 2 times a day as needed for Itching. 0 Active Spacer/Aero-Holding Chambers DeviceIndications:Unc ontrolled intermittent asthma Use with inhaler. 1 Each 0 12/29/2021 Active Nebulizer Device To be used with nebulized medication 1 Each 0 03/25/2022 Active Albuterol Sulfate (2.5 MG/3ML) 0.083% Inhalation Nebulization Solution (Proventil) Inhale via nebulizer 1 Vial every 4 hours as needed for Wheezing. , use in place of rescue inhaler. 30 mL 2 03/25/2022 Active Lisinopril 40 MG Oral TabletIndications:HTN , goal below 140/90 Take 1 Tablet by mouth in the morning. 90 Tablet 3 07/14/2022 Active amLODIPine Besylate 5 MG Oral Tablet (Norvasc)Indications: HTN, goal below 140/90 Take 1 Tablet by mouth in the morning. 30 Tablet 11 11/11/2022 Active Levocetirizine Dihydrochloride 5 MG Oral Tablet Take 1 Tablet by mouth every evening. 90 Tablet 3 01/18/2023 Active Famotidine 20 MG Oral Tablet (Pepcid) Take 1 Tablet by mouth in the morning and 1 Tablet before bedtime. 60 Tablet 3 01/18/2023 Active hydroCHLOROthiazide 25 MG Oral Tablet (Hydrodiuril) Take 1 Tablet by mouth in the morning. 30 Tablet 11 01/25/2023 Active Simvastatin 20 MG Oral Tablet (Zocor) TAKE 1 TABLET BY MOUTH IN THE MORNING 90 Tablet 0 02/26/2023 Active Spiriva Respimat 2.5 MCG/ACT Inhalation Aerosol Solution (Tiotropium [place] Monohydrate)Indicatio ns:Asthma in adult, mild persistent, uncomplicated Inhale 2 Puffs by mouth in the morning. 4 g 5 04/03/2023 Active traZODone HCl 150 MG Oral Tablet (Desyrel) Take 1 Tablet by mouth at bedtime. 90 Tablet 0 05/12/2023 Active Fluticasone Furoate-Vilanterol 200-25 MCG/ACT Inhalation Aerosol Powder Breath Activated (BREO ellipta) Inhale 1 Puff by mouth in the morning. 60 Blister Dosing Unit 5 05/19/2023 Active valACYclovir HCl 1 GM Oral Tablet (Valtrex) TAKE 1 TABLET BY MOUTH ONCE DAILY FOR SUPRESSION 90 Tablet 3 06/21/2023 Active Montelukast Sodium 10 MG Oral Tablet (Singulair)Indication s:Asthma in adult, mild persistent, uncomplicated TAKE 1 TABLET BY MOUTH IN THE MORNING 90 Tablet 3 06/21/2023 Active documented as of this encounter (statuses as of 06/23/2023) Active Problems Problem Noted Date Diagnosed Date Morbid obesity 10/22/2020 Allergic rhinitis due to allergen 04/22/2020 HTN, goal below 140/90 Insomnia Sleep apnea in adult Moderate persistent asthma with exacerbation Genital herpes Hypercholesteremia documented as of this encounter (statuses as of 06/23/2023) Immunizations Name Administration Dates Next Due COVID-19 mRNA, LNP-s, No Pre serve, 2-Dose Series (Pfizer) 08/03/2020,07/13/2020 PPD 01/09/2019 Pneumococcal Conjugate Vacci ne, 20-valent ([id number]) 10/28/2021 Pneumococcal Polysaccharide PPV23 (Pneumovax) 07/04/2018 Seasonal Influenza Virus Vac cine, Unspecified Formulation 03/28/2018 Seasonal Influenza, PF, 6 M & above, IM , (FluLaval or Fluzone) 04/09/2022,03/22/2021,02/16/2020,03/04,03/28/2018 TDAP (age 10 and older)(Boostrix) 07/04/2018 Zoster Vaccine Recombinant (Shingrix) 04/25/2021 ,10/22/2020 documented as of this encounter Social History Tobacco Use Types Packs/Day Years Used Date Smoking Tobacco: Never Smokeless Tobacco: Never Alcohol Use Standard Drinks/Week Comments Yes 0 (1 standard drink = 0.6 oz pur e alcohol) socially PHQ-2 Answer Date Recorded PHQ Adult Total Score 0 10/28/2021 Sex and Gender Information Value Date Recorded Sex Assigned at Male 10/28/2021 5:48 PM EDT Gender Identity Male 10/28/2021 5:48 PM EDT Sexual Orientation Straight 10/28/2021 5: 48 PM EDT Job Start Date Occupation Industry Not on file Not on file Not on file documented as of this encounter Plan of Treatment Pending Results Name Type Priority Associated Diagnoses Date /Time CBC Lab Routine Encounter for long-term (current) use of medications 06/23/2023 8:30 AM EST LIPID PANEL WITH DIRECT LDL IF TG IS HIGH Lab Routine Encounter for long-term (current) use of medications Hypercholesteremia 06/23/2023 8:30 AM EST COMPREHENSIVE METABOLIC PANEL Lab Routine Encounter for long-term (current) use of medications 06/23/2023 8:30 AM EST VITAMIN B12 Lab Routine Tremors of nervous system 06/23/2023 8:30 AM EST MAGNESIUM Lab Routine Tremors of nervous system 06/23/2023 8:30 AM EST ALBUMIN / CREATININE RATIO, URINE Lab Routine Preventative health care 06/23/2023 8:31 AM EST Health Maintenance Due Date Last Done Comments Hepatitis B (1 of 3 - 3-dose series) 1965 Albumin/Creatinine Ratio 12/18/1983 Hepatitis C Screening 12/18/1983 Cologuard 2010 Fecal Occult Blood Test 2010 Sigmoidoscopy 2010 Depression Screening 10/28/2022 10/28/2021 COVID-19 Vaccine ( season) 2023 08/03/2020, 07/13/2020 Influenza Vaccine (FLU shot) (#1) 2023 04/09/2022, 03/22/2021, 02/16/2020, Additional history exists GFR 05/04/2023 05/04/2022, 04/07, 02/19/2020, Additional history exists Diabetes Screening 05/04/2025 05/04/2022, 1 06/25/2020, 04/25/2021, Additional history exists Colonoscopy 01/16/2026 01/17/2016 Colorectal Cancer Screening 01/16/2026 Lipid Panel 04/25/2026 04/25/2021, 02/05, 07/04/2018, Additional history exists DTaP,Tdap,and Td Vaccines (2 - Td or Tdap) 07/04/2028 07/04/2018 Zoster Vaccines Completed 04/25/2021, 10/22/2020 Pneumococcal Vaccine: Pediatrics (0 to 5 Years) and At-Risk Patients (6 to 64 Years) Completed 10/28/2021, 07/04/2018 GARDASIL-HPV IMMUNIZATION SERIES Aged Out No longer eligible based on patient's age to complete this topic MENINGOCOCCAL (MENACTRA/MENVEO) Aged Out No longer eligible based on patient's age to complete this topic documented as of this encounter Medical Devices Not on filedocumented as of this encounter Visit Diagnoses Diagnosis Encounter for long-term (current) use of medications Encounter for long-term (current) use of other medications Hypercholesteremia Pure hypercholesterolemia Hypertension, unspecified type Tremors of nervous system Abnormal involuntary movements Preventative health care Routine general medical examination at a health care facility documented in this encounter Care Teams Spindraw Operator Relationship Specialty Start Date End Date Richard Clay DO [address] [place] [address] PCP - General Family Medicine 07/04/18 documented as of this encounter
--- OUTSIDE RECORDS SUMMARY | 2023-11-05 18:31 | External Medical Summary | Summary of Care ---
Author Name Unknown Organization [facility] Address [address] [place] [address] Phone [phone] Care Team Providers Care Pilot Steam Yacht Name Role Phone DannaRichard Claudy OAKES Primary Care Provider [phone] Reason for Visit * Reason Comments Outpatient Testing Encounter Details Date Type Department Care Team (Late st Contact Info) Description 06/23/2023 8:30 AM EST Laboratory Laboratory Scenery [facility] [address] [place] [address] [facility] [address] [place] [address] Encounter for long-term (current) use of medications; [...] Respimat 2.5 MCG/ACT Inhalation Aerosol Solution (Tiotropium [place] Monohydrate)Indicatio ns:Asthma in adult, mild persistent, uncomplicated [...] PPD 01/09/2019 Pneumococcal Conjugate Vacci ne, 20-valent ([id number]) 10/28/2021 Pneumococcal Polysaccharide PPV23 (Pneumovax) 07/04/2018 Seasonal [...] facility documented in this encounter Care Teams Pilot Steam Yacht Relationship Specialty Start Date End Date Richard Clay DO [address] [place] [address] PCP - General Family Medicine 07/04/18 documented as of this encounter
--- OUTSIDE RECORDS SUMMARY | 2023-11-05 18:31 | External Medical Summary ---
Author Name Unknown Address Unknown Organization K09:[facility] [place] [place] [address] [address] Laboratory Report Ordering Provider Test Date Status 06/23/2023 08:30:46 Final Observation Date Value Abnormality Reference (Units ) Status Magnesium 06/23/2023 08:30:46 1.7 1.5-2.6 (m g/dL) Final Performing Location [facility] [place] [address]
--- OUTSIDE RECORDS SUMMARY | 2023-11-05 18:31 | External Medical Summary ---
Author Name Unknown Address Unknown Organization K01:[facility] [place] - [address] [facility] [address] Laboratory Report Ordering Provider Test Date Status YG ROSENBAUM 06/23/2023 08:30:46 Final Observation Date Value Abnormality Reference (Units ) Status Triglyceride 06/23/2023 08:30:46 77 <=174 ( mg/dL) Final Triglyceride Reference Range s (mg/dL):
<150 Acceptable
150-174 Borderline high
175-499 High
>=500 Very high Cholesterol 06/23/2023 08:30:46 215 Above high normal <200 (mg/dL) Final Total Cholesterol Reference Ranges (mg/dL):
<200 Desirable
200-239 Borderline high
>=240 High HDL 06/23/2023 08:30:46 103 >39 (mg/dL ) Final HDL Cholesterol Reference Ra nges (mg/dL):
>=60 High (Desirable)
<50 Low (Undesirable) For Females
<40 Low (Undesirable) For Males NON-HDL CHOLESTEROL 06/23/2023 08:30:46 112 <=159 (mg/dL) Final Non-HDL Cholesterol Referenc e Range (mg/dL):
<100 Target level for high risk ASCVD patient
<130 Optimal for general population
130-159 Near optimal for general population
160-189 Borderline High
190-219 High
>=220 Very High LDL, (calculated) 06/23/2023 08:30:46 97 <= 129 (mg/dL) Final LDL Cholesterol Reference Ra nges (mg/dL):
<70 Target level for high risk ASCVD patient
<100 Optimal for general population
100-129 Near optimal for general population
130-159 Borderline high
160-189 High
>=190 Very high Performing Location [facility]AT[facility] [place] - [address] [facility] [address]
--- OUTSIDE RECORDS SUMMARY | 2023-11-05 18:31 | External Medical Summary | Summary of Care ---
Author Name Unknown Organization [facility] Address [address] [place] [address] Phone [phone] Care Team Providers Care Security Sergeant Name Role Phone Jameel Abarca DO Primary Care Provider [phone] Reason for Visit * Reason Comments eRx-Medication Refill Encounter Details Date Type Department Care Team (Late st Contact Info) Description 10/07/2023 Refill Family Practice [facility] [address] [facility] [place] [address] Jameel Abarca DO [address] [facility] [place] [address] HTN, goal below 140/90 Allergies Active Allergy Reactions Criticality Noted Date Comments Nabumetone 03/28/2018 Carisoprodol 03/28/2018 documented as of this encounter (statuses as of 10/08/2023) Medications Medication Sig Dispensed Refills Start Date End Date Status Multiple Vitamin (MULTI-DAY) Tablet Take 1 Tab by mouth daily. 0 Active Albuterol Sulfate HFA 108 (90 Base) MCG/ACT Inhalation Aerosol Solution INHALE 2 PUFFS BY MOUTH EVERY 4 HOURS NEEDED FOR WHEEZING 54 g 2 1 Active Osteo Bi-Flex Adv Joint Shield Oral Tablet Take by mouth 1 Tablet in the morning. 0 Active diphenhydrAMINE HCl 25 MG Oral Tablet Take 1 Tablet by mouth 2 times a day as needed for Itching. 0 Active Spacer/Aero-Holding Chambers DeviceIndications:Un controlled intermittent asthma Use with inhaler. 1 Each 0 2 Active Nebulizer Device To be used with nebulized medication 1 Each 0 2 Active Albuterol Sulfate (2.5 MG/3ML) 0.083% Inhalation Nebulization Solution (Proventil) Inhale via nebulizer 1 Vial every 4 hours as needed for Wheezing. , use in place of rescue inhaler. 30 mL 2 2 Active amLODIPine Besylate 5 MG Oral Tablet (Norvasc)Indications :HTN, goal below 140/90 Take 1 Tablet by mouth in the morning. 30 Tablet 11 3 Active Levocetirizine Dihydrochloride 5 MG Oral Tablet Take 1 Tablet by mouth every evening. 90 Tablet 3 3 Active Famotidine 20 MG Oral Tablet (Pepcid) Take 1 Tablet by mouth in the morning and 1 Tablet before bedtime. 60 Tablet 3 3 Active hydroCHLOROthiazide 25 MG Oral Tablet (Hydrodiuril) Take 1 Tablet by mouth in the morning. 30 Tablet 11 3 Active Spiriva Respimat 2.5 MCG/ACT Inhalation Aerosol Solution (Tiotropium [place] Monohydrate)Indicati ons:Asthma in adult, mild persistent, uncomplicated Inhale 2 Puffs by mouth in the morning. 4 g 5 3 Active traZODone HCl 150 MG Oral Tablet (Desyrel) Take 1 Tablet by mouth at bedtime. 90 Tablet 0 3 Active Fluticasone Furoate-Vilanterol 200-25 MCG/ACT Inhalation Aerosol Powder Breath Activated (BREO ellipta) Inhale 1 Puff by mouth in the morning. 60 Blister Dosing Unit 5 3 Active valACYclovir HCl 1 GM Oral Tablet (Valtrex) TAKE 1 TABLET BY MOUTH ONCE DAILY FOR SUPRESSION 90 Tablet 3 4 Active Montelukast Sodium 10 MG Oral Tablet (Singulair)Indicatio ns:Asthma in adult, mild persistent, uncomplicated TAKE 1 TABLET BY MOUTH IN THE MORNING 90 Tablet 3 4 Active Simvastatin 20 MG Oral Tablet (Zocor) TAKE 1 TABLET BY MOUTH IN THE MORNING 90 Tablet 3 4 Active Lisinopril 40 MG Oral TabletIndications:HT N, goal below 140/90 TAKE 1 TABLET BY MOUTH IN THE MORNING 90 Tablet 2 4 Active Lisinopril 40 MG Oral TabletIndications:HT N, goal below 140/90 Take 1 Tablet by mouth in the morning. 90 Tablet 3 3 10/08/19 24 Discontinued documented as of this encounter (statuses as of 10/08/2023) Active Problems Problem Noted Date Diagnosed Date Morbid obesity 10/22/2020 Allergic rhinitis due to allergen 04/22/2020 HTN, goal below 140/90 Insomnia Sleep apnea in adult Moderate persistent asthma with exacerbation Genital herpes Hypercholesteremia documented as of this encounter (statuses as of 10/08/2023) Immunizations Name Administration Dates Next Due COVID-19 mRNA, LNP-s, No Pre serve, 2-Dose Series (Pfizer) 08/03/2020,07/13/2020 PPD 01/09/2019 Pneumococcal Conjugate Vacci ne, 20-valent ([id number]) 10/28/2021 Pneumococcal Polysaccharide PPV23 (Pneumovax) 07/04/2018 Seasonal [...] on file documented as of this encounter Miscellaneous Notes * Telephone Encounter - Myron Torres, [facility] - 10/08/2023 12:44 PM EDT Signed Prescriptions: Disp Refills Lisinopril 40 MG Oral Tablet 90 Tab*2 Sig: TAKE 1 TABLET BY MOUTH IN THE MORNINGAuthorizing Provider: JAMEEL ABARCA User: MYRON TORRES-------- documented in this encounter Plan of Treatment Health Maintenance Due Date Last Done Comments Hepatitis C Screening 12/18/1983 Hepatitis B (1 of 3 - 19+ 3-dose series) 1984 Cologuard 2010 Fecal Occult Blood Test 2010 Sigmoidoscopy 2010 Depression Screening 10/28/2022 10/28/2021 COVID-19 Vaccine ( season) 2023 08/03/2020, 07/13/2020 Influenza Vaccine (FLU shot) (Season Ended) 2024 04/09/2022, 03/22/2021, 02/16/2020, Additional history exists GFR 06/23/2024 06/23/2023, 04/08, 04/25/2021, Additional history exists Colonoscopy 01/16/2026 01/17/2016 Colorectal Cancer Screening 01/16/2026 Albumin/Creatinine Ratio 06/23/2026 06/23/2023 Diabetes Screening 06/23/2026 06/23/2023, 1 07/04/2021, 04/25/2021, Additional history exists Lipid Panel 06/23/2028 06/23/2023, 04/07, 02/19/2020, Additional history exists DTaP,Tdap,and Td Vaccines (2 [...] as of this encounter Visit Diagnoses Diagnosis HTN, goal below 140/90 Unspecified essential hypertension documented in this encounter Care Teams Security Sergeant Relationship Specialty Start Date End Date Jameel Abarca DO [address] [place] [address] PCP - General Family Medicine 07/04/18 documented as of this encounter
--- OUTSIDE RECORDS SUMMARY | 2023-11-05 18:31 | External Medical Summary | Summary of Care ---
Author Name Unknown Organization [facility] Address [address] [place] [address] Phone [phone] Care Team Providers Care Watch Crystal Molder Name Role Phone Jameel Abarca DO Primary Care Provider [phone] Reason for Visit * Reason Comments eRx-Medication Refill Encounter Details Date Type Department Care Team (Late st Contact Info) Description 07/08/2023 Refill Family Practice [facility] [address] [facility] [place] [address] [facility]el [facility]barca DO [facility] [address] Allergies Active Allergy Reactions Criticality Noted Date Comments Nabumetone 03/28/2018 Carisoprodol 03/28/2018 documented as of this encounter (statuses as of 07/09/2023) Medications Medication Sig Dispensed Refills Start Date [...] rescue inhaler. 30 mL 2 2 Active Lisinopril 40 MG Oral TabletIndications:HT N, goal below 140/90 Take 1 Tablet by mouth in the morning. 90 Tablet 3 3 Active amLODIPine Besylate 5 MG Oral Tablet [...] Respimat 2.5 MCG/ACT Inhalation Aerosol Solution (Tiotropium [place] Monohydrate)Indicati ons:Asthma in adult, mild persistent, uncomplicated [...] MOUTH IN THE MORNING 90 Tablet 0 09/22/202 3 07/09/19 24 Discontinued documented as of this encounter (statuses as of 07/09/2023) Active Problems Problem Noted Date Diagnosed Date Morbid obesity 10/22/2020 Allergic rhinitis due to allergen 04/22/2020 HTN, goal below 140/90 Insomnia Sleep apnea in adult Moderate persistent asthma with exacerbation Genital herpes Hypercholesteremia documented as of this encounter (statuses as of 07/09/2023) Immunizations Name Administration Dates Next Due COVID-19 mRNA, LNP-s, No Pre serve, 2-Dose Series (Pfizer) 08/03/2020,07/13/2020 PPD 01/09/2019 Pneumococcal Conjugate Vacci ne, 20-valent ([id number]) 10/28/2021 Pneumococcal Polysaccharide PPV23 (Pneumovax) 07/04/2018 Seasonal [...] encounter Miscellaneous Notes * Telephone Encounter - Katerina Zaman, [facility] - 07/09/2023 12:15 PM EST Signed Prescriptions: Disp Refills Simvastatin 20 MG Oral Tablet (Zocor) 90 Tab*3 Sig: TAKE 1 TABLET BY MOUTH IN THE MORNINGAuthorizing Provider: JAMEEL ABARCA User: KATERINA ZAMAN documented in this encounter Plan of Treatment Health Maintenance Due Date Last Done Comments Hepatitis B (1 of 3 - 3-dose series) 1965 Hepatitis C Screening 12/18/1983 Cologuard 2010 Fecal [...] Not on filedocumented as of this encounter Care Teams Watch Crystal Molder Relationship Specialty Start Date End Date Jameel Abarca DO [address] [place] [address] PCP - General Family Medicine 07/04/18 documented as of this encounter
--- OUTSIDE RECORDS SUMMARY | 2023-11-05 18:32 | External Medical Summary | Summary of Care ---
Author Name Unknown Organization [facility] Address [address] [place] [address] Phone [phone] Care Team Providers Care Neon Sign Installer Name Role Phone Jameel Abarca DO Primary Care Provider [phone] Reason for Visit * Reason Onset Date Comments Medication Refill 05/11/2023 Encounter Details Date Type Department Care Team (Late st Contact Info) Description 05/11/2023 Refill Family Practice [facility] [address] [facility] [place] [address] Jameel [facility]barca DO [facility] [address] Encounter for long-term (current) use of medications* Allergies Active Allergy Reactions Criticality Noted Date Comments Nabumetone 03/28/2018 Carisoprodol 03/28/2018 documented as of this encounter (statuses as of 06/22/2023) Medications Medication Sig Dispensed Refills Start Date [...] needed for Itching. 0 Active Spacer/Aero-Holding Chambers DeviceIndications:U ncontrolled intermittent asthma Use with inhaler. 1 Each 0 2 Active Nebulizer Device To be used with nebulized medication 1 Each 0 2 Active Albuterol Sulfate (2.5 MG/3ML) 0.083% Inhalation Nebulization Solution (Proventil) Inhale via nebulizer 1 Vial every 4 hours as needed for Wheezing. , use in place of rescue inhaler. 30 mL 2 2 Active Lisinopril 40 MG Oral TabletIndications:H TN, goal below 140/90 Take 1 Tablet by mouth in the morning. 90 Tablet 3 3 Active amLODIPine Besylate 5 MG Oral Tablet (Norvasc)Indication s:HTN, goal below 140/90 Take 1 Tablet by [...] the morning. 30 Tablet 11 3 Active Simvastatin 20 MG Oral Tablet (Zocor) TAKE 1 TABLET BY MOUTH IN THE MORNING 90 Tablet 0 3 Active Spiriva Respimat 2.5 MCG/ACT Inhalation Aerosol Solution (Tiotropium [place] Monohydrate)Indicat ions:Asthma in adult, mild persistent, uncomplicated Inhale 2 Puffs by mouth in the morning. 4 g 5 3 Active traZODone HCl 150 MG Oral Tablet (Desyrel) Take 1 Tablet by mouth at bedtime. 90 Tablet 0 3 Active traZODone HCl 150 MG Oral Tablet (Desyrel) Take by mouth 1 Tablet before bedtime. 90 Tablet 3 2 05/11/20 23 Discontinued(Re fill) valACYclovir HCl 1 GM Oral Tablet (Valtrex) TAKE 1 TABLET BY MOUTH ONCE DAILY FOR SUPRESSION 90 Tablet 1 3 06/21/19 24 Discontinued(Re fill) Montelukast Sodium 10 MG Oral Tablet (Singulair)Indicati ons:Asthma in adult, mild persistent, uncomplicated TAKE 1 TABLET BY MOUTH IN THE MORNING 90 Tablet 1 3 06/21/19 24 Discontinued(Re fill) Fluticasone-Salmete rol 500-50 MCG/ACT Inhalation Aerosol Powder Breath Activated (Advair Diskus)Indications: Moderate persistent asthma without complication Inhale 1 Puff by mouth in the morning and 1 Puff before bedtime. 60 Each 6 3 05/19/20 23 Discontinued documented as of this encounter (statuses as of 06/22/2023) Active Problems Problem Noted Date Diagnosed Date Morbid obesity 10/22/2020 Allergic rhinitis due to allergen 04/22/2020 HTN, goal below 140/90 Insomnia Sleep apnea in adult Moderate persistent asthma with exacerbation Genital herpes Hypercholesteremia documented as of this encounter (statuses as of 06/22/2023) Immunizations Name Administration Dates Next Due COVID-19 mRNA, LNP-s, No Pre serve, 2-Dose Series (Zhima Tech) 08/03/2020,07/13/2020 PPD 01/09/2019 Pneumococcal Conjugate Vacci ne, 20-valent ([id number]) 10/28/2021 Pneumococcal Polysaccharide PPV23 (Pneumovax) 07/04/2018 Seasonal [...] encounter Miscellaneous Notes * Telephone Encounter - Iah, Care Gaps - 06/22/2023 6:56 PM EST Received message from [facility] regarding patient needing labs. Patient was notified. Successfully contacted patient and provided [facility] message. * Telephone Encounter - Atif Martin [facility] - 05/12/2023 12:21 PM EST Signed Prescriptions: Disp Refills traZODone HCl 150 MG Oral Tablet (Desyrel) 90 Tab*0 Sig: Take 1 Tablet by mouth at bedtime. Authorizing Provider: JAMEEL ABARCA Ordering User: ATIF MARTIN * Telephone Encounter - Atif Martin [facility] - 05/12/2023 12:17 PM EST Provided 90 days supply with 0 refill. Per refill protocol patient should have CMP and CBC on file within past year. Reviewed AMP report, Care Gaps/Health Maintenance, medications list, and for any routine labs typically ordered for this patient. Lab orders placed. Please contact patient to schedule office visit with PRIMARY CARE and advise of labs ordered for blood draw AND URINE specimen (patient will have to be able to void to provide sample).. Recommend patient to fast if able for labs. Patient may still have water and regular medications. Advise to obtain labs before requesting the next refill. Last Visit: 05/04/2022 (in office), Visit date not found (telemedicine) Next Visit: Visit date not found Thank You, Atif Martin, Pharm-D Clinical Pharmacist [facility] [phone] 05/12/2023, 12:19 PM documented in this encounter Plan of Treatment Upcoming Encounters Date Type Department Care Team (Late st Contact Info) Description 06/23/2023 8:30 AM EST Laboratory [facility] Maryellen Villagran [address] [place] [id number] [address] [facility] [place] [address] Scheduled Orders Name Type Priority Associated Diagnoses Orde r Schedule COMPREHENSIVE METABOLIC PANEL Lab Routine Encounter for long-term (current) use of medications Expected: 05/13/2023 (Approximate), Expires: 05/12/2024 Health Maintenance Due Date Last Done Comments [...] Diagnosis Encounter for long-term (current) use of medications- Primary Encounter for long-term (current) use of other medications documented in this encounter Care Teams Neon Sign Installer Relationship Specialty Start Date End Date Jameel Abarca DO [address] [place] [address] PCP - General Family Medicine 07/04/18 documented as of this encounter
--- OUTSIDE RECORDS SUMMARY | 2023-11-05 18:32 | External Medical Summary | Summary of Care ---
Author Name Unknown Organization [facility] Address [address] [place] [address] Phone [phone] Care Team Providers Care Caramel Maker Name Role Phone Richard Clay DO Primary Care Provider [phone] Reason for Visit * Reason Comments Physical-Exam Encounter Details Date Type Department Care Team (Late st Contact Info) Description 06/21/2023 4:00 PM EST Office Visit Family Practice [facility] [address] [facility] [place] [address] Mary Núñez PA-C [address] [facility] [place] [address] Well adult exam*; HTN, goal below 140/90; Hypercholesteremia; Other insomnia; Sleep apnea in adult; Tremors of nervous system; Asthma in adult, mild persistent, uncomplicated; Morbid obesity (HCC) Allergies Active Allergy Reactions Criticality Noted Date Comments Nabumetone 03/28/2018 Carisoprodol 03/28/2018 documented as of this encounter (statuses as of 06/21/2023) Medications Medication Sig Dispensed Refills Start Date [...] 2 03/25/2022 Active Lisinopril 40 MG Oral TabletIndications:HT N, [...] Respimat 2.5 MCG/ACT Inhalation Aerosol Solution (Tiotropium [place] Monohydrate)Indicati ons:Asthma in adult, mild persistent, uncomplicated [...] THE MORNING 90 Tablet 3 06/21/2023 Active valACYclovir HCl 1 GM Oral Tablet (Valtrex) TAKE 1 TABLET BY MOUTH ONCE DAILY FOR SUPRESSION 90 Tablet 1 01/07/2023 06/21/19 24 Discontinu ed(Refill) Montelukast Sodium 10 MG Oral Tablet (Singulair)Joetio ns:Asthma in adult, mild persistent, uncomplicated TAKE 1 TABLET BY MOUTH IN THE MORNING 90 Tablet 1 01/13/2023 06/21/19 24 Discontinu ed(Refill) documented as of this encounter (statuses as of 06/21/2023) Active Problems Problem Noted Date Diagnosed Date Morbid obesity 10/22/2020 Allergic rhinitis due to allergen 04/22/2020 HTN, goal below 140/90 Insomnia Sleep apnea in adult Moderate persistent asthma with exacerbation Genital herpes Hypercholesteremia documented as of this encounter (statuses as of 06/21/2023) Immunizations Name Administration Dates Next Due COVID-19 mRNA, LNP-s, No Pre serve, 2-Dose Series (Pfizer) 08/03/2020,07/13/2020 PPD 01/09/2019 Pneumococcal Conjugate Vacci ne, 20-valent ([id number]) 10/28/2021 Pneumococcal Polysaccharide PPV23 (Pneumovax) 07/04/2018 Seasonal [...] on file documented as of this encounter Last Filed Vital Signs Vital Sign Reading Time Taken Comments Blood Pressure 130/84 06/21/2023 3:56 PM EST Pulse 112 06/21/2023 3:56 PM EST Temperature 37.1 C (98.7 F) 06/21/2023 3:56 PM ES T Respiratory Rate 16 06/21/2023 3:56 PM EST Oxygen Saturation 97% 06/21/2023 3:56 PM EST Inhaled Oxygen Concentration - - Weight 100.8 kg (222 lb 1.9 oz) 06/21/2023 3:56 PM EST Height - - Body Mass Index 33.77 01/18/2023 3:30 PM EDT documented in this encounter Progress Notes * Mary Núñez PA-C - 06/21/2023 4:21 PM EST Chief Complaint: Marcus Ludwig is a 57 year old male who presents for annual physical History of Present Illness: Denies chest pain, sob, palpitations, edema, headaches, Some dizzy Appetite good Sleep good Urination/ bowel movements; notes some weakness of stream. Feeling shaky all the time. Bilateral shoulder pain; torn rotator cuffs documented by MRI. Has been to physical therapy 3 times. Good range of motion. Past Medical History: Diagnosis Date Asthma Asthma in adult, mild persistent, uncomplicated Genital herpes HTN, goal below 140/90 Hypercholesteremia Insomnia Sleep apnea in adult Sleep apnea, obstructive Past Surgical History: Procedure Laterality Date EXPLORE/REPAIR DETACHED EYE MUSCLE REMOVAL OF UVULA REMOVE TONSILS & ADENOIDS, AGE 12+ REPAIR NASAL SEPTUM DEFECT Current Outpatient Medications Medication Sig Dispense Refill Multiple Vitamin (MULTI-DAY) Tablet Take 1 Tab by mouth daily. Albuterol Sulfate HFA 108 (90 Base) MCG/ACT Inhalation Aerosol Solution INHALE 2 PUFFS BY MOUTH EVERY 4 HOURS NEEDED FOR WHEEZING 54 g 2 Osteo Bi-Flex Adv Joint Shield Oral Tablet Take by mouth 1 Tablet in the morning. diphenhydrAMINE HCl 25 MG Oral Tablet Take 1 Tablet by mouth 2 times a day as needed for Itching. Spacer/Aero-Holding Chambers Device Use with inhaler. 1 Each 0 Nebulizer Device To be used with nebulized medication 1 Each 0 Albuterol Sulfate (2.5 MG/3ML) 0.083% Inhalation Nebulization Solution (Proventil) Inhale via nebulizer 1 Vial every 4 hours as needed for Wheezing. , use in place of rescue inhaler. 30 mL 2 Lisinopril 40 MG Oral Tablet Take 1 Tablet by mouth in the morning. 90 Tablet 3 amLODIPine Besylate 5 MG Oral Tablet (Norvasc) Take 1 Tablet by mouth in the morning. 30 Tablet 11 valACYclovir HCl 1 GM Oral Tablet (Valtrex) TAKE 1 TABLET BY MOUTH ONCE DAILY FOR SUPRESSION 90 Tablet 1 Montelukast Sodium 10 MG Oral Tablet (Singulair) TAKE 1 TABLET BY MOUTH IN THE MORNING 90 Tablet 1 Levocetirizine Dihydrochloride 5 MG Oral Tablet Take 1 Tablet by mouth every evening. 90 Tablet 3 Famotidine 20 MG Oral Tablet (Pepcid) Take 1 Tablet by mouth in the morning and 1 Tablet before bedtime. 60 Tablet 3 hydroCHLOROthiazide 25 MG Oral Tablet (Hydrodiuril) Take 1 Tablet by mouth in the morning. 30 Tablet 11 Simvastatin 20 MG Oral Tablet (Zocor) TAKE 1 TABLET BY MOUTH IN THE MORNING 90 Tablet 0 Spiriva Respimat 2.5 MCG/ACT Inhalation Aerosol Solution (Tiotropium [place] Monohydrate) Inhale 2 Puffs by mouth in the morning. 4 g 5 traZODone HCl 150 MG Oral Tablet (Desyrel) Take 1 Tablet by mouth at bedtime. 90 Tablet 0 Fluticasone Furoate-Vilanterol 200-25 MCG/ACT Inhalation Aerosol Powder Breath Activated (BREO ellipta) Inhale 1 Puff by mouth in the morning. 60 Blister Dosing Unit 5 No current facility-administered medications for this visit. Review of patient's allergies indicates: Allergen Reactions Relafen [Nabumetone] Soma [Carisoprodol] Social History Socioeconomic History Marital status: Spouse name: Not on file Number of children: Not on file Years of education: Not on file Highest education level: Not on file Occupational History Not on file Tobacco Use Smoking status: Never Smokeless tobacco: Never Vaping Use Vaping Use: Never used Substance and Sexual Activity Alcohol use: Yes Comment: socially Drug use: No Sexual activity: Yes Partners: Female Other Topics Concern Not on file Social History Narrative 1 dog and 1 cat Possible mold around the window in the bedroom Gas heat Window air conditioning. Social Determinants of Health Financial Resource Strain: Not on file Food Insecurity: Not on file Transportation Needs: Not on file Physical Activity: Not on file Stress: Not on file Social Connections: Not on file Intimate Partner Violence: Not on file Housing Stability: Not on file Family History Problem Relation Age of Onset Hypertension Mother Breast Cancer Mother Hyperlipidemia Mother Hypertension Father Other (prediabetes) Father Skin cancer Father Not Melanoma Melanoma Brother ADD / ADHD Daughter ADD / ADHD Son ADD / ADHD Son ADD / ADHD Son Review Of Systems Skin: negative Eyes: negative Ears/Nose/Throat: negative Respiratory: dyspnea on exertion Cardiovascular: hypertension Gastrointestinal: negative Genitourinary: negative Musculoskeletal: pt denies significant joint pain or stiffness Neurologic: tremor Psychiatric: negative Hematologic/Lymphatic/Immunologic: negative Endocrine: negative PHYSICAL EXAMINATION: BP 130/84 | Pulse 112 | Temp 37.1 C (98.7 F) (Tympanic) | Resp 16 | Wt 100.8 kg (222 lb 1.9 oz)| SpO2 97% | BMI 33.77 kg/m | BSA 2.2 m Head: Normocephalic. No gross lesions. Eye: Grossly normal. PERRLA, EDM, conjuctivae not injected. Ears: Pinnae grossly normal. Canals clear. TM normal, no erythema. Nose: Grossly normal. Midline septum, no discharge. Mouth: Moist mucus membranes. Dentition good. Oropharynx clear, tonsils normal without exudate. Neck: Grossly normal. No bruits. No palpable nodes. Full ROM. Chest: Grossly normal. Heart: R&R. No murmur, rubs, or thrills. S1S2 present. No S3 & S4. Lungs: Clear on auscultation. Percussion normal and symmetric. Abdomen: Soft, BS +, no masses, organomegaly-, no bruit. Extremities: Grossly normal. No clubbing, cyanosis, erythema, or edema. Genitalia: deferred ASSESSMENT/PLAN: (Z00.00) Well adult exam (primary encounter diagnosis) Plan: (I10) HTN, goal below 140/90 Plan: (E78.00) Hypercholesteremia Plan: (G47.09) Other insomnia Plan: (G47.30) Sleep apnea in adult Plan: Diet and exercise discussed. Continue current medications. documented in this encounter Nursing Notes * Paulina Johansen LPN - 06/21/2023 3:58 PM EST Marcus Ludwig presents for annual physical exam. Medications & HM reviewed. Discuss medications. Both rotator cuffs are torn does PT trying to avoid surgery documented in this encounter Plan of Treatment Scheduled Orders Name Type Priority Associated Diagnoses Orde r Schedule VITAMIN B12 Lab Routine Tremors of nervous system Expected: 06/21/2023 (Approximate), Expires: 06/20/2024 MAGNESIUM Lab Routine Tremors of nervous system Expected: 06/21/2023 (Approximate), Expires: 06/20/2024 Health Maintenance Due Date Last Done Comments [...] as of this encounter Visit Diagnoses Diagnosis Well adult exam- Primary Routine general medical examination at a health care facility HTN, goal below 140/90 Unspecified essential hypertension Hypercholesteremia Pure hypercholesterolemia Other insomnia Sleep apnea in adult Tremors of nervous system Abnormal involuntary movements Asthma in adult, mild persistent, uncomplicated Morbid obesity (HCC) Morbid obesity documented in this encounter Care Teams Caramel Maker Relationship Specialty Start Date End Date Richard Clay DO [address] [place] [address] PCP - General Family Medicine 07/04/18 documented as of this encounter"
--- OUTSIDE RECORDS SUMMARY | 2023-11-05 18:32 | External Medical Summary | Summary of Care ---
Author Name Unknown Organization [facility] Address [address] [place] [address] Phone [phone] Care Team Providers Care Nursing Assistants Teacher Name Role Phone Richard Clay DO Primary Care Provider [phone] Reason for Visit * Reason Onset Date Comments Health Maintenance 05/24/2023 Encounter Details Date Type Department Care Team (Late st Contact Info) Description 05/24/2023 Telephone Family Practice [facility] [address] [place] [address] Richard Clay DO 200 [place] [address] Health Maintenance Allergies Active Allergy Reactions Criticality Noted Date Comments Nabumetone 03/28/2018 Carisoprodol 03/28/2018 documented as of this encounter (statuses as of 05/24/2023) Medications Medication Sig Dispensed Refills Start Date [...] the morning. 30 Tablet 11 11/11/2022 Active valACYclovir HCl 1 GM Oral Tablet (Valtrex) TAKE 1 TABLET BY MOUTH ONCE DAILY FOR SUPRESSION 90 Tablet 1 01/07/2023 Active Montelukast Sodium 10 MG Oral Tablet (Singulair)Indication s:Asthma in adult, mild persistent, uncomplicated TAKE 1 TABLET BY MOUTH IN THE MORNING 90 Tablet 1 01/13/2023 Active Levocetirizine Dihydrochloride 5 MG Oral Tablet [...] Respimat 2.5 MCG/ACT Inhalation Aerosol Solution (Tiotropium [place] Monohydrate)Indicatio ns:Asthma in adult, mild persistent, uncomplicated [...] 60 Blister Dosing Unit 5 05/19/2023 Active documented as of this encounter (statuses as of 05/24/2023) Active Problems Problem Noted Date Diagnosed Date Morbid obesity 10/22/2020 Allergic rhinitis due to allergen 04/22/2020 HTN, goal below 140/90 Insomnia Sleep apnea in adult Moderate persistent asthma with exacerbation Genital herpes Hypercholesteremia documented as of this encounter (statuses as of 05/24/2023) Immunizations Name Administration Dates Next Due COVID-19 mRNA, LNP-s, No Pre serve, 2-Dose Series (Pfizer) 08/03/2020,07/13/2020 PPD 01/09/2019 Pneumococcal Conjugate Vacci ne, 20-valent ([id number]) 10/28/2021 Pneumococcal Polysaccharide PPV23 (Pneumovax) 07/04/2018 Seasonal [...] encounter Miscellaneous Notes * Telephone Encounter - Bea Alvarado LPN - 05/24/2023 2:46 PM EST Care Gaps Comprehensive Care Outreach Last Office/Telemedicine Visit: 05/04/2022 (in office), Visit date not found (telemedicine) Next Office Visit: Visit date not found Hemoglobin AIC Results: Lab Results Component Value Date/Time HEMOGLOBIN A1C - [facility] 5.7 (H) 04/25/2021 04:08 PM Reviewed Health Maintenance below: Health Maintenance Topic Date Due Hepatitis B (1 of 3 - 3-dose series) Never done Albumin/Creatinine Ratio Never done Hepatitis C Screening Never done Depression Screening 10/28/2022 Influenza Vaccine (FLU shot) (1) 02/05/2023 COVID-19 Vaccine ( season) 2023 GFR 05/04/2023 Ov scheduled Labs/urine scheduled Care Gap Outreach Action Taken: Spoke to patient documented in this encounter Plan of Treatment Upcoming Encounters Date Type Department Care Team (Late st Contact Info) Description 06/18/2023 3:20 PM EST Office Visit Family Practice [facility] [address] [place] [address] Ally Cohn CRNP [address] [place] [address] 06/18/2023 3:50 PM EST Laboratory Laboratory [facility] [address] [place] [id number] [place], [address] [place] [address] Scheduled Orders Name Type Priority Associated Diagnoses Orde r Schedule ALBUMIN / CREATININE RATIO, URINE Lab Routine Hypertension, unspecified type Expected: 05/24/2023 (Approximate), Expires: 05/24/2024 COMPREHENSIVE METABOLIC PANEL Lab Routine Hypertension, unspecified type Expected: 05/24/2023, Expires: 05/24/2024 Health Maintenance Due Date Last Done Comments [...] as of this encounter Visit Diagnoses Diagnosis Hypertension, unspecified type- Primary documented in this encounter Care Teams Nursing Assistants Teacher Relationship Specialty Start Date End Date Richard Clay DO [address] [place] [address] PCP - General Family Medicine 07/04/18 documented as of this encounter
--- OUTSIDE RECORDS SUMMARY | 2023-11-05 18:32 | External Medical Summary | Summary of Care ---
Author Name Unknown Organization [facility] Address [address] [place] [address] Phone [phone] Care Team Providers Care Gate Keeper Name Role Phone DannaRichard Claudy OAKES Primary Care Provider [phone] Encounter Details Date Type Department Care Team (Late st Contact Info) Description 06/22/2023 Orders Only PATIENT PORTAL DO NOT DELETE THIS DEPT USED BY [place] [id number] Allergies Active Allergy Reactions Criticality Noted Date [...] Respimat 2.5 MCG/ACT Inhalation Aerosol Solution (Tiotropium [place] Monohydrate)Indicatio ns:Asthma in adult, mild persistent, uncomplicated [...] PPD 01/09/2019 Pneumococcal Conjugate Vacci ne, 20-valent ([id number]) 10/28/2021 Pneumococcal Polysaccharide PPV23 (Pneumovax) 07/04/2018 Seasonal [...] as of this encounter Plan of Treatment Health Maintenance Due Date Last Done Comments Hepatitis B (1 of 3 - 3-dose series) 1965 Albumin/Creatinine Ratio 12/18/1983 Hepatitis C Screening 12/18/1983 Cologuard 2010 Fecal Occult Blood Test 2010 Sigmoidoscopy 2010 Depression Screening 10/28/2022 10/28/2021 COVID-19 Vaccine ( - season) 2023 08/03/2020, 07/13/2020 Influenza Vaccine (FLU [...] filedocumented as of this encounter Care Teams Gate Keeper Relationship Specialty Start Date End Date Richard Clay DO [address] [place] [address] PCP - General Family Medicine 07/04/18 documented as of this encounter
[2023-11-06 07:37] LABS: Basophils # (auto) 0.05 K/uL (0.00-0.20); Basophils % (auto) 0.7 %; Eosinophils # (auto) 0.04 K/uL (0.00-0.50); Eosinophils % (auto) 0.6 %; Hematocrit (blood only) 38.8 % (42.0-52.0); Hemoglobin 13.2 g/dl (14.0-18.0); Immature Granulocytes # (auto) 0.07 K/uL (0.01-0.20); Lymphocytes # (auto) 1.86 K/uL (1.20-3.40); Lymphocytes % (auto) 26.9 %; Mean Corpuscular Hemoglobin 35.8 pg (25.0-34.0); Mean Corpuscular Volume 105.1 fL (80.0-100.0); Mean Platelet Volume 11.4 fL (9.4-12.4); Monocytes # (auto) 0.78 K/uL (0.11-0.59); Monocytes % (auto) 11.3 %; Neutrophils # (auto) 4.12 K/uL (1.40-6.50); Neutrophils % (auto) 59.5 %; Platelet Count 200 K/uL (130-400); RDW Standard Deviation 46.8 fL (36.4-46.3); Red Blood Count 3.69 M/uL (4.70-6.10); White Blood Count 6.92 K/ul (4.8-10.8)
[2023-11-06] MEDS: FOLIC ACID 1 MG TAB PO SCH (08:18)
[2023-11-06] MEDS: THIAMINE HCL 100 MG TAB PO SCH (08:18)
[2023-11-06] MEDS: ADVANCED PROBIOTIC 625 MG CAPSULE PO SCH (08:20)
[2023-11-06 08:21] LABS: Albumin Level 3.4 gm/dl (3.4-5.0); Bilirubin,Total 0.5 mg/dl (0.2-1.0); Calcium 8.2 mg/dl (8.6-10.3); Magnesium 1.6 mg/dl (1.7-2.4); Potassium 3.4 mmol/L (3.5-5.1)
[2023-11-06 08:26] LABS: Albumin Globulin Ratio 1.3 (0.9-2); BUN Creatinine Ratio 23.1 (10-20); Creatinine Clr Calc Pharmacy 143.6 ml/min; Est GFR (African American) 125.2 ml/min; Globulin 2.7 gm/dl (2.5-4.0); Phosphorus 3.4 mg/dl (2.5-4.9); Total Protein 6.1 gm/dl (6.0-8.3)
--- NOTE | 2023-11-06 12:43 | Discharge Summary ---
Date of Service November 06, 2023 Admission HPI Per Admitting Provider Mr. 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 He reports this is never happened to him before and he proceeded to urgent care where they found that he was tachycardic in the 130s and sent him to the ED for further evaluation. He reports that he has been taking his inhalers over the past few days without improvement and notes that he has had a increase in sputum production with discoloration. He denies overt fever and chills. He does admit to daily alcohol use including 5 drinks of vodka per day that he drinks between 5 PM and 10:30 PM he states that he has missed a few days of drinking before but it has been more than a few years. He denies any seizure or withdrawal symptoms but does report that he "shakes" at times. Additional past medical history includes asthma, HTN, HLD, alcohol use. In the ED no leukocytosis, hypomagnesemia 1.3, mild transaminitis, procalcitonin negative, otherwise electrolytes unremarkable. Chest x-ray negative for acute cardiopulmonary disease chest CT a negative for PE but suggestive of bronchial wall thickening with a mild 17 mm liver lesion noted. EKG without ischemia. CXR negative for acute cardiopulmonary process. Chest CTA no evidence for a pulmonary embolus. Mild central bronchial wall thickening. This could be chronic or represent a mild reactive airways disease. No focal lung consolidations to suggest pneumonia. A 17 mm enhancing lesion within the left hepatic lobe. This is incompletely characterized on this study but statistically represents a benign lesion in the absence of a known malignancy. Clustered hypodense lesions within the upper pole of the left kidney favor septated cysts. Patient will be admitted for further evaluation and management and given asthma history and elevated lactate with tachycardia will continue treatment for community-acquired pneumonia with ceftriaxone plus doxycycline, trend lactate down, flutter valve and incentive spirometry with nebulizers as needed, sputum culture. Trend LFTs and placed on a WSS scale including gabapentin and as needed Ativan for withdrawal symptoms, treat hypertension and HLD with outpatient medications. ECG without ischemic changes; will obtain echocardiogram given history of hypertension and persistent tachycardia however suspect that his tachycardia is related to viral infection and possible alcohol withdrawal. Admission Exam Per Admitting Provider Neuro: AAOx4, PERRLA, no aphagia, memory changes, CNII-XII grossly intact HEENT: head normocephalic, moist mucus membranes CV: S1/S2, (-) M/G/R, (-) edema, cap refill < 3 seconds Resp: Lungs CTA in all dominguez. On RA GI: Abdomen S/NT/ND, Ax4 bowel sounds, (-) CVA tenderness Musculoskeletal: 5/5 B/L UE strength, 5/5 B/L LE strength. No gait disturbance Skin: (-) rashes , (-) erythema. Psych: euthymic mood Principal Diagnosis Possible pneumonia versus bronchitis Severe sepsis POA Liver lesion Transaminitis and alcohol use disorder Discharge Exam GENERAL: Alert and oriented x3. NAD, on RA. HEENT: No pallor, no icterus. Pupils equal, round and reactive to light. Oral mucosa moist. NECK: No JVD, no neck masses. HEART: S1 and S2 heard. Regular rate and rhythm. No murmur, no gallop. RESPIRATORY SYSTEM: Normal AP diameter. No accessory muscle use. No wheezing, no crackles. ABDOMEN: Soft, bowel sounds present, nontender, no distention. CENTRAL NERVOUS SYSTEM: No facial droop. Speech is clear. Obeys simple commands. Moves extremities. EXTREMITIES: No edema, no erythema seen. Discharge Data Allergies Allergy/AdvReac Type Severity Reaction Status Date / Time carisoprodol [From Soma] Allergy Hives Verified 11/04/23 14:31 nabumetone [From Relafen] Allergy Hives Verified 11/04/23 14:31 Consultations 11/04/23 16:17 ED Decision to Admit Stat Ordered Studies 11/04/23 14:02 CT angio chest PE protocol Stat 11/05/23 17:30 US liver Routine Hospital Course (1) Sinus tachycardia: (2) Alcohol use disorder: (3) Hypomagnesemia: (4) Shortness of breath: (5) Bronchitis: Plan 57 year old male that presented to the ED as recommended by Urgent Care with worsening SOB in the setting of an asthma exacerbation; 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 He proceeded to urgent care where they found that he was tachycardic in the 130s and sent him to the ED for further evaluation. He reports that he has been ta roger his inhalers over the past few days without improvement and notes that he has had a increase in sputum production with discoloration. He denies overt fever and chills. He does admit to daily alcohol use including 5 drinks of vodka per day that he drinks between 5 PM and 10:30 PM he states that he has missed a few days of drinking before without seizures or withdrawal. Additional past medical history includes asthma, HTN, HLD, alcohol use. Possible pneumonia versus bronchitis Severe sepsis POA: In the setting of possible upper respiratory infection. Heart rate/lactate/respiratory rate elevated at presentation. 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 Admitting CXR and CTA chest reviewed. Echo reviewed. Respiratory pathogen panel negative. Continue with ceftriaxone 11/04 and doxycycline 11/04. Continue home inhalers. Continue as needed inhalers. Add probiotic. 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 Patient reports feeling better, denies shortness of breath with activity. To p.o. antibiotics on discharge to complete the course. Liver lesion: Irregular hypoechoic lesion noted in the US liver measuring 22 x 18 x 19 mm. Patient made aware. Patient advised to follow-up with contrast- enhanced liver MRI as an outpatient. Patient voiced understanding. Transaminitis and alcohol use disorder: LFT trending down, continue LASHELL S protocol, continue thiamine and folic acid. Patient not interested in quitting drinking, but plans to cut down on drinking. Other chronic medical conditions: Continue with/resume home meds as and when able Asthma: Chronic, appears stable, no wheezing, continue home medications. HTN: Chronic, continue home amlodipine and lisinopril. Hyperlipidemia: Chronic, continue home simvastatin CODE STATUS: Full code DVT prophylaxis: Lovenox Patient is being discharged with following instruction at the point of discharge: Follow-up with your primary care physician within a week time and likely you will need labs CBC/CMP/magnesium/phosphorus. You will be discharged on antibiotic to complete the course for bronchitis. As discussed at the bedside, recommend refraining from drinking alcohol products. As discussed at the bedside, you need outpatient MRI for liver lesion. Likely you will benefit from seeing hepatology on discharge. Coordinate with your PCP office to set up the test and referral. Take your medications as prescribed. Please make sure that you are able to get your medications today by calling your pharmacy before you leave the hospital so that your treatment continuity is not broken. Home Health Attestation I certify that this patient is under my care and that I, or a physicians facility assistant working with me, had a face to-face encounter that meets the home health [id number] encounter requirements with this patient. The encounter with the patient was in whole, or in part, for the following medical condition, which is the primary reason for home health care (list medical condition): I certify that, based on my findings, the following services are medically necessary home health services: My clinical findings support the need for the above services because: Further, I certify that my clinical findings support that this patient is homebound (i.e. absences from home require considerable and taxing effort and are for medical reasons or restoration services or infrequently or of short duration when for other reasons) because: Certification for Home Health Services: Based on the above findings, I certify that this patient is confined to the home and needs intermittent nursing home care, physical therapy and/or speech therapy or continues to need occupational therapy. The patient is under my care, and I have initiated the establishment of the plan of care. This patient will be followed by a physician who will periodically review the plan of care. Total Time Total Time Spent Total Time Spent (In Minutes): 45 Discharge Plan Discharge Items Patient Disposition: Home - Self-Care Reason For Visit: CAP + ETOH WITHDRAWAL Discharge Diagnosis: Possible pneumonia versus bronchitis Severe sepsis POA Liver lesion Transaminitis and alcohol use disorder Activity: Resume your previous activity Non-emergency contact: Primary Care Provider Call non-emergency contact if: you have any medication questions Follow-up/Referrals: Richard Clay, [Primary Care Provider] - Diet: Heart Healthy Addtl Attending Provider Instructions: Follow-up with your primary care physician within a week time and likely you will need labs CBC/CMP/magnesium/phosphorus. You will be discharged on antibiotic to complete the course for bronchitis. As discussed at the bedside, recommend refraining from drinking alcohol products. As discussed at the bedside, you need outpatient MRI for liver lesion. Likely you will benefit from seeing hepatology on discharge. Coordinate with your PCP office to set up the test and referral. Take your medications as prescribed. Please make sure that you are able to get your medications today by calling your pharmacy before you leave the hospital so that your treatment continuity is not broken. Pending Studies at Discharge: Yes Stand-Alone Forms: [facility], Smoking Cessation Medications and DC Order Prescriptions: New gabapentin 600 mg Tablet 600 mg PO Q12H 2 Days Qty: 3 0RF Advanced Probiotic 625 mg (10 billion cell) Capsule 1 cap PO DAILY 7 Days Qty: 7 0RF folic acid 1 mg Tablet 1 mg PO QAM Qty: 30 0RF thiamine HCl (vitamin B1) 100 mg Tablet 100 mg PO QAM Qty: 30 0RF cefdinir 300 mg capsule 300 mg PO BID 5 Days Qty: 10 0RF doxycycline hyclate 100 mg tablet 100 mg PO BID 5 Days Qty: 10 0RF Continued valacyclovir 1 gram tablet 1,000 mg PO DAILY amlodipine 5 mg tablet 5 mg PO QAM montelukast 10 mg tablet 10 mg PO QAM albuterol sulfate 90 mcg/actuation Hfa Aerosol Inhaler 2 puff INHALATION Q4 PRN (Reason: Shortness Of Breath Or Wheezing) Spiriva Respimat 2.5 mcg/actuation mist 2 puff INHALATION QAM fluticasone furoate-vilanterol [Breo Ellipta] 200-25 mcg/dose blister with device 1 inh INHALATION QAM multivitamin Tablet 1 tab PO DAILY simvastatin 20 mg tablet 20 mg PO QAM trazodone 150 mg tablet 150 mg PO HS lisinopril 40 mg tablet 40 mg PO QAM Otc Prostate Supp 1 tab PO DAILY Discharge Orders: Discharge Order (Routine); Ordered 11/06/23 Ordered By: Evens Ewing Admission Data Admit Date/Time: 11/04/23 16:47 Attending Provider: Evens Ewing Admit Provider: Paige Boland Primary Care Provider: Richard Clay Other Providers: Paige Boland
[2023-11-06] MEDS: POTASSIUM CHLORIDE CRTAB 20 MEQ TABCR PO STA (13:44)
[2023-11-06] MEDS ORDERED: GABAPENTIN 600 MG TAB PO SCH (17:30)
[2023-11-08] MEDS ORDERED: GABAPENTIN 600 MG TAB PO SCH (05:30)
== END 2023-11-06 14:11 | disposition home or self-care (01) | DRG 871 ==
LOC: ED 12:39 → EDINP 16:47 → SUATTDRO 16:47 → 2S 21:40
DX: R00.0 Tachycardia, unspecified; E83.42 Hypomagnesemia; J20.9 Acute bronchitis, unspecified; J45.901 Unspecified asthma with (acute) exacerbation; K76.9 Liver disease, unspecified; R74.01 Elevation of levels of liver transaminase levels; A41.9 Sepsis, unspecified organism; J18.9 Pneumonia, unspecified organism; E78.5 Hyperlipidemia, unspecified; R93.2 Abnormal findings on diagnostic imaging of liver and biliary tract; I10 Essential (primary) hypertension; F10.239 Alcohol dependence with withdrawal, unspecified; R65.20 Severe sepsis without septic shock